=== PATIENT | female | born 1985 | race American Indian/Alaskan Native ===

== ENCOUNTER 2017-09-09 09:42 | Observation (INO) | payer OTHER ==
[~2017-09-09] VITALS: Ht 162.6 cm; Wt 54.0 kg
[~2017-09-09 09:42] MED LIST: NORCO 5-325 TA1 EACH PO
[2017-09-09] MEDS ORDERED: IBUPROFEN600 MG PO (10:09)
[2017-09-09] MEDS ORDERED: OXYCODONE HCL5 MG PO (10:10)
--- NOTE | 2017-09-09 14:28 | NUR ---
PT IN THE ROOM, ALERT AND ORIENTED X4, C/O 9/10 ABD PAIN, AND 7/10 RT SHOULDER. PT SPOUSE IS AT THE BEDSIDE. TRANEXAMIC ACID STARTED AT 1420, PT SUSIE WELL. PT GIVEN 0.5 MG DILAUDID FOR PAIN. PT DENIES NAUSEA, PAIN AND SOB.
--- NOTE | 2017-09-09 15:05 | NUR ---
PATIENT RESTING NOW THAT NAUSEA IMPROVED. ERIKA MASSEY IN ROOM ASSISTING WITH ADMIT. LAB CALLED TO COME DRAW FOR 1530 LABS
--- NOTE | 2017-09-09 15:34 | NUR ---
LAB IN ROOM. PATIENT REPORTS NAUSEA IMPROVED. PAIN OKAY AT THIS TIME.
--- NOTE | 2017-09-09 15:45 | NUR ---
DR. HIDALGO ROUNDED IN ROOM. UPDATED GIVEN TO DR. HIDALGO. PATIENT GIVEN UPDATED. PLAN FOR NEW LABS AT 1930. PATEINT UP TO BR TO VOID. VOIDED 500MLS OF CHRISTINE COLOR URINE.
--- NOTE | 2017-09-09 15:51 | NUR ---
LAB RESULTS BACK. ATTEMPTED TO CALL DR. HIDALGO IN [facility]. MESSAGE LEFT TO CALL BACK DUE TO HER BEING IN OR.
--- NOTE | 2017-09-09 16:25 | NUR ---
DILAUDID GIVEN FOR 7/10 PAIN. PATIENT TOLERATED WELL. VITALS TAKEN.
--- NOTE | 2017-09-09 16:30 | NUR ---
BROUGHT PATIENT 3 ICE PACKS.
--- NOTE | 2017-09-09 17:43 | NUR ---
patient resting in bed with hob elevated. pain okay. no nausea at this time.
--- NOTE | 2017-09-09 18:36 | NUR ---
PATIENT STATING PAIN 5/10 STARTING TO CREEP UP. DILAUDID 0.5MG GIVEN IV. NO NAUSEA AT THIS TIME. FAMILY AT BEDSIDE. NO OTHER NEEDS AT THIS TIME. VITALS DONE.
--- NOTE | 2017-09-09 19:15 | NUR ---
BEDSIDE REPORT RECEIVED FROM OFFGOING RN. PT DENIES NEEDS AT THIS TIME. PT'S SIG OTHER AT BEDSIDE. CALL LIGHT WITHIN REACH.
--- NOTE | 2017-09-09 20:15 | NUR ---
PT ASSESSMENT COMPLETE. PT DENIES NAUSEA OR SOB AT THIS TIME. PT RATES PAIN 5/10 TO ABD, DENIES PRN PAIN MEDICATION. BT'S HYPOACTIVE, ABD TENDER TO PALPATION. BANDAIDS IN PLACE X 2 TO LAP SITES, SCANT AMOUNT OF DRAINAGE PRESENT TO BANDAIDS, DRY AT THIS TIME. PT PROVIDED WITH ICE WATER AND JELLO. PT DENIES NEEDS AT THIS TIME. CALL LIGHT WITHIN REACH.
--- NOTE | 2017-09-09 22:00 | NUR ---
PT UP TO USE THE BATHROOM. PT REQUESTS PRN PAIN MEDICATION FOR ABDOMINAL PAIN, ADMINISTERED. DENIES OTHER NEEDS AT THIS TIME. CALL LIGHT WITHIN REACH. PT SIGNIFICANT OTHER IN ROOM.
--- NOTE | 2017-09-09 22:44 | NUR ---
VITALS AND I&OS DONE AND CHARTED. BEDSIDE TABLE AND CALL LIGHT WITHIN REACH. PT NEEDS NOTHING ELSE AT THIS TIME.
--- NOTE | 2017-09-10 00:20 | NUR ---
PT RESTING IN BED WITH EYES CLOSED. RESPIRATIONS EVEN AND UNLABORED. PT APPEARS TO BE SLEEPING. CALL LIGHT WITHIN REACH. PT'S SIGNIFICANT OTHER SLEEPING ON COUCH.
--- NOTE | 2017-09-10 01:22 | NUR ---
VITALS AND I&OS DONE AND CHARTED. EMPTIED GARBAGES. OFFERED HER MORE ICE WATER, SHE SAID NO THANK YOU. SHE ASKED FOR PAIN PILLS, I TOLD HER RN EDELMIRA.
--- NOTE | 2017-09-10 01:58 | NUR ---
PT ASSESSMENT COMPLETE. PT REPORTS ABD PAIN INCREASED TO 7/10. PRN DILAUDID ADMINISTERED ASSESSMENT UNCHANGED FROM PREVIOUS.PT DENIES FURTHER NEEDS AT THIS TIME. CALL LIGHT WITHIN REACH.
--- NOTE | 2017-09-10 02:30 | NUR ---
MD NOTIFIED OF CRITICAL VALUE. VERBAL ORDER RECEIVED FOR TYPE AND CROSS FOR 4 UNITS RECEIVED. CALLL TO LAB TO NOTIFY. ORDER ENETERED.
--- NOTE | 2017-09-10 02:31 | NUR ---
LAB CALLED AT 0230 CRITICAL LAB VALUES FOR HG 6.4, HCT 19.7, PRIMARY RN NOTIFIED
--- NOTE | 2017-09-10 03:00 | NUR ---
MD TO FLOOR. CONSENT SIGNED. CALL TO [employer] FOR OR TEAM TO BE CALLED IN. 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 CHLORAHEX WIPES COMPLETED AND NEW GOWN ON. PREOP CHECK LIST COMPLETE.
--- NOTE | 2017-09-10 03:57 | NUR ---
PT TO OR ON BED. COMPLETED UNIT OF BLOOD, 2ND UNIT OF BLOOD, AND BLOOD DOCUMENTATION SENT WITH SURGICAL TEAM.
--- NOTE | 2017-09-10 08:32 | NUR ---
09/10/17 0832 Reina Faith 0737 PT ARRIVED IN PACU MOANING AND C/O ABD PAIN. 0739 DILAUDID 0.5MG GIVEN IVP. ANESTHESIA AT BEDSIDE. 0747 PT CONTINUES TO CRY OUT AND C/O ABD PAIN. DILAUDID 0.5MG GIVEN IVP. 0755 REPORT GIVEN TO [facility] RN'S. 0756 DILAUDID 0.5MG GIVEN FOR C/O ABD PAIN. 0800 DILAUDID 0.5MG GIVEN IVP BEFORE TRANSFER TO [facility] FOR TRANSPORT. PT'S SPOUSE AT BEDSIDE. TRANSFERED TO [facility] WITH 4 PERSON ASSIST. LEFT WITH [facility] AND [facility] AT 0805. 2UNITS OF [facility]'S SENT WITH CREW IN [place].
--- NOTE | 2017-09-10 09:42 | HP ---
[facility] [address] [place], [place] [address] Signed ADMISSION DATE: 09/09/2017 HISTORY OF PRESENT ILLNESS: The patient is a 32-year-old female, 5, para 3, VIP 2, status post laparoscopic bilateral tubal ligation with Falope rings on September 08, which appeared completely uncomplicated at that time. She had increased pain early the morning of admission (the night of her surgical procedure. She went to the restroom to void but then subsequently passed out and she believes she hit her head. She then returned to bed, but continued to have some increased right-sided abdominal pain. She spoke to the postop nurse the following morning who called as a routine f/u. She mentioned the fainting episode and was advised to come into the emergency room for evaluation. She has had some decreased appetite and intermittent nausea and vomiting. She denied any fever. PAST HISTORY: Surgeries: Laparoscopic tubal ligation with Falope rings on September 08. That is her only surgery. Illnesses: Positive for migraines only. HABITS: Negative for tobacco. Positive for occasional alcohol use. Positive for cannabis use. ALLERGIES: No known allergies. MEDICATIONS: Percocet and Motrin since her surgery. PHYSICAL EXAMINATION: VITAL SIGNS: On her admit, her vital signs were stable. Blood pressure is 137/83, pulse 86. She was afebrile. LUNGS: Clear. HEART: Regular rate and rhythm without murmur. ABDOMEN: Tender and more firm on the right lower abdomen. The dressings are dry and intact. EXTREMITIES: Negative. CT scan revealed moderate free fluid, probably blood, and a right thickened rectus muscle with a mass approximately 9 x 4 x 10 cm, which was probably a hematoma. Electronically Signed By: ANTONIO HIDALGO MD 09/10/17 0942 PATIENT NAME: JOEL LANE HISTORY AND PHYSICAL DATE OF : [birth year] REPORT #: [id number] PHYSICIAN: ANTONIO HIDALGO MD PCP: ANDREWS WARD REPORT IS CONFIDENTIAL AND NOT TO BE RELEASED WITHOUT AUTHORIZATION [facility] [address] [place], [place] [address] Signed The upper abdomen was normal. LABS: Her hematocrit was 44 before her tubal ligation. On the morning of her ER evaluation, hematocrit was 29.5. At the time of her admission, her hematocrit was 24. Her chemistry panel was normal. IMPRESSION: A 32-year-old female with probable abdominal wall hematoma or pelvic hematoma. It is possible this is a self-limiting problem, but this will require very close observation. If her H and H continues to decrease, exploration of the abdomen will be needed to find the bleeding point. If she remains asymptomatic, and her H and H remain stable, it is possible she may not require any surgical evaluation. PLAN: Admit to observation. Remain NPO. Serial H and H. Tranexamic acid 1 gm IV given. SCDs. IV Dilaudid as needed. MD ESTHELA Shearer/ANUJ /[id number] Copies: ~ Electronically Signed By: ANTONIO HIDALGO MD 09/10/17 0942 PATIENT NAME: JOEL LANE WILTON HISTORY AND PHYSICAL DATE OF : [birth year] REPORT #: [id number] PHYSICIAN: ANTONIO HIDALGO MD PCP: ANDREWS WARD REPORT IS CONFIDENTIAL AND NOT TO BE RELEASED WITHOUT AUTHORIZATION
--- NOTE | 2017-09-10 09:52 | OR ---
[facility] [address] [place], [place] [address] Signed DATE OF OPERATION: 09/10/2017 SURGEON: Maliha Chapa MD BUILDING CONTRACTOR: Moses Lu MD PREOPERATIVE DIAGNOSIS: Intraabdominal hemorrhage. POSTOPERATIVE DIAGNOSIS: Intraabdominal hemorrhage. PROCEDURE: Exploratory laparotomy. ANESTHESIA: General ET. ESTIMATED BLOOD LOSS: 150 mL intraoperatively, approximately 1500 mL within the abdomen. DRAINS: Vicente catheter. URINE OUTPUT: 525 mL. INDICATIONS AND FINDINGS: The patient is a 32-year-old female 5, para 3, AB 2, who underwent a laparoscopic tubal ligation, which was uncomplicated on September 08. [facility] and that night had more pain and when she was up to the bathroom after urinating, she fainted. The [facility] Center nurse had contacted during the day after surgery just to see how she was doing and at that point she reported the fainting episode and she was advised to come into the emergency room. At that point, it was found that her preop hematocrit had been 44, but it was now 29. Abdominal CT revealed some abdominal fluid consistent with some blood as well as a thickened rectus consistent with a hematoma. The patient was admitted for observation and underwent serial lab draws. She had a hematocrit of 24 after being in the emergency room for approximately 4 hours. She then had two more lab draws, which were the same. At Electronically Signed By: MALIHA CHAPA MD 09/10/17 0952 PATIENT NAME: JOEL LANE OPERATIVE REPORT DATE OF : [birth year] REPORT #: [id number] PHYSICIAN: MALIHA CHAPA MD PCP: ANDREWS WARD REPORT IS CONFIDENTIAL AND NOT TO BE RELEASED WITHOUT AUTHORIZATION [facility] [address] [place], [place] [address] Signed that point, she had a level drawn 4 hours after her previous one. This level was drawn late and the results also returned quite late, but at that point, her hematocrit was found to be 19, which was a significant change from her prior labs. At that point, it was felt that exploration was necessary to find out where the bleeding was coming from and to stop it. At the time of surgery, exam under anesthesia revealed some fullness on the right side of the abdomen and pelvis, but there was no obvious mass. There was some fresh blood noted underneath the dressing at the suprapubic site, but otherwise her abdomen appeared benign. DESCRIPTION OF PROCEDURE: The patient was prepped and draped in the supine position. The incision was made in a Pfannenstiel location going through the prior suprapubic site using the knife. There was a bleeding point just below the skin at the suprapubic incision. This was controlled with cautery. The fascia was opened transversely. The inferior and superior fascial flaps were created. The abdomen was then entered through the peritoneal incision that had been made with the tubal ligation and this was extended superiorly. A large amount of blood was then extruded out of the abdomen. After the great majority of the blood was removed from the abdomen, a careful examination was made of the pelvis. The patient's right tube and ovary were seen to be normal. The Falope ring was intact and there was no evidence of tearing of the tube. The uterus had no evidence of any lacerations. The patient's left tube and ovary were also evaluated and there was no evidence of any bleeding or tearing around that Falope ring. Following this, the small Stan was placed to aid in visualization. Further inspection was done and there was some bruising noted around the sigmoid on the patient's left side and on the pelvic sidewall and this was felt to be more likely to be related to the retraction. The abdomen was copiously irrigated and inspected and both gutters were evaluated and the left side appeared to be dry with no evidence of bleeding from the upper abdomen. The right side did appear to have a continuous trickle of blood. There appeared to be some small bleeding points on the omentum as it was thoroughly inspected and these were grasped and free ties of 0 Vicryl were placed on the bleeding points identified. However, there continued to be some bleeding coming down from the right gutter despite this. It was felt that there was possibly an injury higher that could not be evaluated with the pfannensteil incision and that further expertise was needed as this was clearly not a pelvic injury. So at this point, the general surgeon, Dr. Casper was asked to come in to help with evaluation of the patient. The retractor was removed and this area was packed. The umbilical incision was also reopened and inspected. There appeared to be some raw areas on the muscles and some [id number] sutures of 0 Vicryl placed in this area. This area was inspected both from underneath as well as from above. Electronically Signed By: MALIHA CHAPA MD 09/10/17 0952 PATIENT NAME: JOEL LANE OPERATIVE REPORT DATE OF : [birth year] REPORT #: [id number] PHYSICIAN: MALIHA CHAPA MD PCP: ANDREWS WARD REPORT IS CONFIDENTIAL AND NOT TO BE RELEASED WITHOUT AUTHORIZATION [facility] [address] [facility] [place] [address] Casper arrived and evaluated this area, he felt that this was likely related to possible liver injury or something that was quite high up around the liver and that more advanced care was indicated. At this point, the decision was made to close the abdomen and transport the patient for advanced care. The packs were removed and again a small trickle of bloody fluid was seen to come from the right gutter. The peritoneum was identified and Thaddeus was placed around the bruised area around the sigmoid colon. The peritoneum was then closed with a running suture of 3-0 Vicryl. The muscles were brought together with interrupted sutures of 0 Vicryl. This layer was irrigated and inspected and appeared to be hemostatic. Thaddeus was sprinkled over the muscles also to aid in hemostasis. The fascia was closed from each angle to the midline with running suture of 0 Vicryl. The subcutaneous tissue was irrigated and bleeding points controlled with cautery. This was closed with a running suture of 3-0 Vicryl. The skin was closed with subcuticular suture of 3-0 Vicryl Rapide. This was followed by Mastisol and Steri-Strips. The fascial incision at the umbilicus was reidentified and closed with a running suture of 0 Vicryl. A deep suture of 3-0 Vicryl was placed to close a little bit at the space. The skin was closed with subcuticular sutures of 3-0 Vicryl Rapide. All sponge and needle counts were correct. The patient did tolerate the procedure well and was quite stable during the surgery. Preparations were then made for transport. Maliha Chapa MD PJW/MODL /[id number] cc: MD Dominick Tracy MD Copies: MOSES LU MD, ANDREW L MD ~ Electronically Signed By: MALIHA CHAPA MD 09/10/17 0952 PATIENT NAME: JOEL LANE OPERATIVE REPORT DATE OF : [birth year] REPORT #: [id number] PHYSICIAN: MALIHA CHAPA MD PCP: ANDREWS WARD REPORT IS CONFIDENTIAL AND NOT TO BE RELEASED WITHOUT AUTHORIZATION
--- NOTE | 2017-09-10 13:16 | OR ---
[facility] [address] [facility], [place] [address] Signed Copies: ~ Electronically Signed By: ANTONIO HIDALGO MD 09/10/17 1316 PATIENT NAME: SHERJOEL JO OPERATIVE REPORT DATE OF : [birth year] REPORT #: [id number] PHYSICIAN: ANTONIO HIDALGO MD PCP: ANDREWS WARD REPORT IS CONFIDENTIAL AND NOT TO BE RELEASED WITHOUT AUTHORIZATION
== END 2017-09-10 03:58 | disposition short-term general hospital (02) ==
LOC: ED 09:42 → MS 09:44
PROVIDERS: ADMIT Obstetrics & Gynecology
PROC: 0W3G0ZZ Control Bleeding in Peritoneal Cavity, Open Approach (ICD-10-PCS; principal; 2017-09-09)
DX: N99.820 Postprocedural hemorrhage of a genitourinary system organ or structure following a genitourinary system procedure (principal); N99.840 Postprocedural hematoma of a genitourinary system organ or structure following a genitourinary system procedure; Y83.8 Other surgical procedures as the cause of abnormal reaction of the patient, or of later complication, without mention of misadventure at the time of the procedure; D64.9 Anemia, unspecified; F17.200 Nicotine dependence, unspecified, uncomplicated; Z98.51 Tubal ligation status
CPT/HCPCS: 00840; 36415; 36430; 74177; 80053; 81001; 85025; 85027; 85384; 85610; 85730; 86850; 86900; 86901; 86920; 96361; 96374; 96375; 96376; 99285; G0378; J0131; J0690; J1170; J1885; J2405; J2550; J3010; J7030; J7120; P9016; Q9967

== ENCOUNTER → 2018-10-18 | Emergency (ER) | payer OTHER ==
[~2018-10-18] VITALS: Ht 162.6 cm; Wt 54.0 kg
[~2018-10-18] MED LIST changes: +IBUPROFEN600 MG PO; +OXYCODONE HCL5 MG PO; +ZOFRAN4 MG PO
== END ==
LOC: ED 01:16
DX: R10.9 Unspecified abdominal pain (principal); R11.2 Nausea with vomiting, unspecified
CPT/HCPCS: 74177; 80053; 81001; 83690; 84703; 85025; 99284-25; J1170; J2405; J2550; J7030; Q9967

== ENCOUNTER 2021-03-12 20:38 | Emergency (ER) | payer OTHER ==
[~2021-03-12] VITALS: Ht 162.6 cm; Wt 60.3 kg
--- OUTSIDE RECORDS SUMMARY | 2021-03-12 20:46 | XMS ---
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 Maxine has no Care Guidelines for this patient. EAissatou VISIT COUNT (12 MO.) 1 RICARDO Glass TOTAL 1 NOTE: Visits indicate total known visits. ED/UCC VISIT TRACKING (12 MO.) 03/12/2021 20:39 RICARDO Huerta OR TYPE: Emergency COMPLAINT: - CONSTIPATION, VOMITING BLOOD INPATIENT VISIT TRACKING (12 MO.) No inpatient visits to display in this time frame [email or web address]
[2021-03-12] MEDS ORDERED: ONDANSETRON ODT8 MG PO (23:24)
[2021-03-12] MEDS ORDERED: CARAFATE1 GM PO (23:24)
[2021-03-12] MEDS ORDERED: PROTONIX20 MG PO (23:24)
== END 2021-03-12 23:57 | disposition home or self-care (01) ==
LOC: ED 20:38
DX: K59.00 Constipation, unspecified (principal); F10.99 Alcohol use, unspecified with unspecified alcohol-induced disorder; K22.6 Gastro-esophageal laceration-hemorrhage syndrome; R11.2 Nausea with vomiting, unspecified; Z20.822 Contact with and (suspected) exposure to COVID-19; F17.200 Nicotine dependence, unspecified, uncomplicated; Z88.5 Allergy status to narcotic agent
CPT/HCPCS: 36415; 74177; 80053; 81001; 83690; 84703; 85025; 85610; 96375; 99284-25; A9270; C9803; G0480; J1200; J2270; J2405; J7030; U0003

== ENCOUNTER 2021-11-13 18:03 | Emergency (ER) | payer SELFPAY ==
[~2021-11-13] VITALS: Ht 162.6 cm; Wt 60.3 kg
[~2021-11-13 18:03] MED LIST changes: +CARAFATE1 GM PO; +ONDANSETRON ODT8 MG PO; +PROTONIX20 MG PO
[2021-11-13] MEDS ORDERED: ONDANSETRON ODT8 MG PO (21:38)
== END 2021-11-13 21:56 | disposition home or self-care (01) ==
LOC: ED 18:03
DX: R10.84 Generalized abdominal pain (principal); R11.2 Nausea with vomiting, unspecified; F19.10 Other psychoactive substance abuse, uncomplicated; F17.200 Nicotine dependence, unspecified, uncomplicated
CPT/HCPCS: 36415; 74177; 80053; 81001; 83690; 84703; 85025; 96361; 96375; 96376; 99284-25; A9270; G0480; J1170; J2405; J7030; Q9967

== ENCOUNTER 2022-01-06 07:51 | Inpatient (IN) | payer OTHER ==
[~2022-01-06] VITALS: Ht 162.6 cm; Wt 62.2 kg
--- NOTE | 2022-01-06 15:35 | NUR ---
Patient arrives with BRYSON Hoskins from ED on stretcher to room 108. Report received. Patient scoots self from stretcher to bed. Vitals, weight obtained. Skin assessment completed by this nurse and BRYSON Hoskins. Assessment completed.
--- NOTE | 2022-01-06 17:52 | NUR ---
Discussed patient's concern about alcohol withdrawal with Dr. Mendez. Patient informed this nurse most recent drink was 3 days ago and she has had withdrawal issues with hallucinations when she has quit drinking previously. Last drink greater than 72 hours ago, no initiation of protocol at this time. Patient notified. Verbalizes understanding.
--- NOTE | 2022-01-06 19:25 | NUR ---
RECEIVED REPORT FROM ADALI MASSEY. PT IS RESTING IN BED WATCHING TV. CALL LIGHT WITHIN REACH. IV FLUIDS RUNNING DIRECTED. NO FURTHER NEEDS AT THIS TIME.
--- NOTE | 2022-01-06 21:40 | NUR ---
IN PT ROOM FOR ALPINE PATROLLER AND ASSESSMENT. PT STATES PAIN IS 6/10, PRN MORPHINE GIVEN (SEE EMAR). PT STATES N/T IN HANDS AND ARMS. PT REPORTS NO SOB, DIZZINESS, OR NAUSEA AT THIS TIME. CONTINUOUS FLUIDS RUNNING DIRECTED INTO IV SITE WNL. LUNGS ARE CLEAR THROUGHOUT, PULSES PRESENT THROUGHOUT, SKIN IS PINK/DRY/WARM, NO SIGNS OF SKIN BREAKDOWN, PT IS ABLE TO MOVE SELF IN BED. ABDOMEN IS NORMAL PER PT BUT TENDER IN EPIGASTRIC REGION. BOWEL TONES ACTIVE X4. PT INDEPENDENT IN ROOM. PT IS ALERT AND ORIENTED X4. CALL LIGHT WITHIN REACH, NO FURTHER NEEDS AT THIS TIME.
--- NOTE | 2022-01-06 23:30 | NUR ---
IN PT ROOM TO CHECK ON PAIN. PT STATES PAIN 1/10 AND TOLERABLE AT THIS TIME. PT STATES 4/10 PAIN IS MANEAGABLE W/OUT PAIN MEDICATION. PT IS RESTING IN BED WITH ICE PACK GIVEN FOR COMFORT. CALL LIGHT WITHIN REACH, NO FURTHER NEEDS AT THIS TIME.
--- NOTE | 2022-01-07 01:00 | NUR ---
IN PT ROOM TO CHECK ON PAIN. PT STATES PAIN IS 5/10 IN EPIGASTRIC REGION. PRN OXY GIVEN (SEE EMAR). SMALL SIP OF WATER GIVEN FOR DIRECTOR OF HEMOPHILIA (OK'ED PER NURSE NOTIFY).
--- NOTE | 2022-01-07 02:09 | NUR ---
IN PT ROOM FOR VS. PT IS RESTING COMFORTABLY AND STATES PAIN IS MANEAGABLE WITH NO PRN MEDS NECESSARY AT THIS TIME. NO NAUSEA PER PT. VSS. CALL LIGHT WITHIN REACH, NO FURTHER NEEDS AT THIS TIME.
--- NOTE | 2022-01-07 03:37 | NUR ---
IN PT ROOM FOR CHANGING OF CONTINUOUS FLUIDS. IV FLUIDS RUNNING DIRECTED. PT APPEARS COMFORTABLE AND IS RESTING WITH EYES CLOSED, AWAKENS EASILY TO VOICE. IV SITE WNL. CALL LIGHT WITHIN REACH, NO FURTHER NEEDS AT THIS TIME.
--- NOTE | 2022-01-07 05:05 | NUR ---
PT RESTING W/EYES CLOSED ON BACK. PT APPEARS COMFORTABLE. RESPIRATIONS ARE EVEN AND NO SIGNS OF DISTRESS. CALL LIGHT WITHIN REACH. CONTINUOUS FLUIDS RUNNING DIRECTED.
--- NOTE | 2022-01-07 05:35 | NUR ---
IN PT ROOM FOR RECORDING I/O. PT AMBULATED TO BATHROOM W/OUT DIFFICULTY INDEPENDENTLY W/IV PUMP. PT REPORTED NAUSEA AND 6/10 INCREASING PAIN, PRN ZOFRAN AND OXY GIVEN (SEE EMAR). ICE PACK PROVIDED FOR PT COMFORT. CALL LIGHT WITHIN REACH, NO FURTHER NEEDS AT THIS TIME.
--- NOTE | 2022-01-07 07:00 | NUR ---
PT REPORTS NAUSEA. PAIN IS MANEAGABLE AT THIS TIME AT 5/10 AND NO MEDS REQUIRED PER PT. PRN NAUSEA MED GIVEN (SEE EMAR).
--- NOTE | 2022-01-07 07:00 | NUR ---
Report from Micah Garcia RN. Patient alert and oriented in bed. Denies needs at this time. Call light in reach, bed rails up X2.
--- NOTE | 2022-01-07 09:23 | NUR ---
AM MEDICATIONS ADMINISTERED. PAIN TOLERABLE AT THIS TIME. ASSESSMENT COMPLETED. DENIES NEEDS AT THIS TIME. CALL LIGHT IN REACH. BED RAILS UP X2.
--- NOTE | 2022-01-07 09:30 | NUR ---
PT IN BED. VITALS AND IS AND OS COMPLETE. PT DECLINED NEEDING TO USE RESTROOM. HAT CHECKED AND OK. NO FURTHER NEEDS. CALL LIGHT WITHIN REACH.
--- NOTE | 2022-01-07 10:45 | NUR ---
[place]oke with [place] She does not need any DME. Janet from [facility] was able to assist her to sign up for the OHP today. Pt would like to speak with SEKOU about her alcohol use. I called and was able to speak with Lian and she will see pt in approximately 2 hrs. Pt plans on dc to home. She does state she would be willing to go to a rehab if available.
--- NOTE | 2022-01-07 13:15 | NUR ---
PT IN BED RESTING. VITALS AND IS AND OS COMPLETE. NO FURTHER NEEDS. CALL LIGHT WITHIN REACH.
--- NOTE | 2022-01-07 13:16 | NUR ---
PT ALERT, ORIENTED AND RESTING IN BED WITH TV ON AND RM DARKENED. PT IS PLEASANT, ENGAGED IN VISIT. REQUESTED VISIT WITH -I WILL INFORM HIM. GAVE G.POST AND BLESSING. WILL FOLLOW
--- NOTE | 2022-01-07 15:06 | NUR ---
Patient awake in room, SEKOU in to speak with her.
--- NOTE | 2022-01-07 16:48 | NUR ---
Patient lying in bed today, up independently. Allowed sips of water per Dr. Mendez's verbal order. Patient increased nausea this afternoon after sips of water. See EMAR for PRN's given for nausea and pain today. Continues on IV fluids. Labs improving.
--- NOTE | 2022-01-07 19:10 | NUR ---
RECEIVED REPORT FROM ADALI MASSEY. PT IS RESTING IN BED. REPORTS PAIN 7/10 IN EPIGASTRIC REGION AND NAUSEA AT THIS TIME. PRN MORPHINE AND PRN ZOFRAN GIVEN (SEE EMAR). CALL LIGHT WITHIN REACH, NO FURTHER NEEDS AT THIS TIME.
--- NOTE | 2022-01-07 19:23 | EKG ---
[facility] [address] [facility] [place] [address] Signed Normal sinus rhythm Normal ECG No previous ECGs available Confirmed by DESIRAE PORTILLO MD ([id number]) on 01/07/2022 7:23:41 PM Electronically Signed By: DESIRAE PORTILLO MD 01/07/221922 PATIENT NAME: JOEL LANE WILTON Electrocardiogram DATE OF : [birth year] PHYSICIAN: DESIRAE PORTILLO MD REPORT #: [id number] REPORT IS CONFIDENTIAL AND NOT TO BE RELEASED WITHOUT AUTHORIZATION
--- NOTE | 2022-01-07 19:40 | NUR ---
IN PT ROOM FOR ASSESSMENT, PAIN FOLLOW UP, AND VS. PT RESTING IN BED, AT BEDSIDE. LUNGS CLEAR THROUGHOUT, PULSES PRESENT THROUGHOUT, SKIN C/D/I AND NO SIGNS OF SKIN BREAKDOWN, PT ABLE TO MOVE SELF IN BED. PAIN HAS RESOLVED TO 4/10 POST PRN MORPHINE. PT STATES NAUSEA HAS RESOLVED POST PRN ZOFRAN. PT STATES N/T IN ONLY LEFT HAND AND ARM AT THIS TIME. ABDOMEN NORMAL SIZE PER PT AND TENDER IN EPIGASTRIC REGION, BOWEL TONES ACTIVE X4. CONTINUOUS FLUIDS RUNNING DIRECTED, NEW DRESSING PLACED ON IV SITE, SITE WNL. PROVIDED LEMON/CABAZON SODA FOR . CALL LIGHT WITHIN REACH, NO FURTHER NEEDS AT THIS TIME.
--- NOTE | 2022-01-07 22:44 | NUR ---
PT RESTING W/EYES CLOSED. RESPIRATIONS EVEN AND UNLABORED, NO SIGNS OF DISTRESS. CALL LIGHT WITHIN REACH. SLEEPING IN RECLINER AT BEDSIDE.
--- NOTE | 2022-01-07 23:35 | NUR ---
PT RESTING IN BED LAYING ON BACK W/EYES CLOSED. SLEEPING IN RECLINER AT BEDSIDE. CALL LIGHT WITHIN REACH. IV FLUIDS RUNNING DIRECTED.
--- NOTE | 2022-01-08 00:37 | NUR ---
PT RESTING ON BACK W/EYES CLOSED. RESPIRATIONS ARE EVEN AND UNLABORED, NO SIGNS OF DISTRESS. PT APPEARS COMFORTABLE. CALL LIGHT WITHIN REACH.
--- NOTE | 2022-01-08 01:28 | NUR ---
PT RESTING W/EYES CLOSED. PT APPEARS COMFORTABLE. RESPIRATIONS ARE EVEN AND UNLABORED, NO SIGNS OF DISTRESS. CALL LIGHT WITHIN REACH. IV FLUIDS RUNNING DIRECTED.
--- NOTE | 2022-01-08 02:39 | NUR ---
IN ROOM D/T BEEPING PUMP. PT NEEDING TO USE RESTROOM. PT INDEPENDENT TO RESTROOM. STATES PAIN IS 6/10 IN EPIGASTRIC REGION AT THIS TIME, PRN OXY GIVEN (SEE EMAR). PT REPORTS NO NAUSEA AT THIS TIME. NO ACUTE CHANGES FROM PREVIOUS ASSESSMENT. PT REMAINS TENDER IN EPIGASTRIC REGION AND REPORTS TIGHTNESS THAT INCREASES W/AMBULATION. BOWEL TONES ACTIVE X4. PT NOW RESTING BACK IN BED, ICE CHIPS AND ICE PACK PROVIDED, SLEEPING ON COUCH, CALL LIGHT WITHIN REACH, NO FURTHER NEEDS AT THIS TIME.
--- NOTE | 2022-01-08 03:35 | NUR ---
PT RESTING ON BACK W/EYES CLOSED. RESPIRATIONS ARE EVEN AND UNLABORED, NO SIGNS OF DISTRESS. CALL LIGHT WITHIN REACH, IV FLUIDS RUNNING DIRECTED. PT APPEARS COMFORTABLE.
--- NOTE | 2022-01-08 05:20 | NUR ---
PT IN BED. VITALS AND IS AND OS COMPLETE. PT DECLINED TO USE RESTROOM PT PERFORMED SELF AM CARE. NO FURTHER NEEDS. CALL LIGHT WITHIN REACH.
--- NOTE | 2022-01-08 05:20 | NUR ---
UNEVENTFUL NIGHT FOR PT. PT SLEPT THROUGH MOST THE NIGHT. SLEPT ON COUCH MOST OF THE NIGHT. ABDOMINAL PAIN NEVER EXCEEDED 7/10, PRN OXY GIVEN X2, PRN MORPHINE GIVEN X1, AND PRN ZOFRAN GIVEN X1. PT INDEPENDENT THROUGHOUT THE ROOM AND ALERT AND ORIENTED X4. NO SIGNS OF SKIN BREAKDOWN, PT ABLE TO MOVE SELF IN BED. PT MET W/SEKOU YESTERDAY AND WILLING TO WORK WITH THEM FOR ALCOHOL ABUSE. NO SIGNIFICANT ASSESSMENT FINDINGS BESIDES PAIN AND TENDERNESS IN ABDOMEN, AND N/T IN LEFT HAND/ARM PRESENT SINCE ADMISSION. PT USES CALL LIGHT APPROPRIATELY. ICE PACK FOR COMFORT, SIPS ALLOWED, ICE CHIPS AT BEDSIDE.
--- NOTE | 2022-01-08 07:36 | NUR ---
Patient resting in bed, no distress. Personal supplies and call light within reach.
--- NOTE | 2022-01-08 09:35 | NUR ---
DR. HALLMAN OFFICE WILL BE CONTACTING THE PT TO SCHEDULE A FOLLOW-UP IN THEIR OFFICE
--- NOTE | 2022-01-08 09:47 | NUR ---
PATIENT RESTING IN BED WITH EYES CLOSED. UPON WALKING INTO ROOM PATIENT WOKE UP. VITALS TAKEN AND RECORDED. PATIENT COMPLAINS OF EPIGASTRIC PAIN 5/10. MORPHINE PROVIDED PER ORDER, DOCUMENTED IN EMAR. PATIENT COMPLAINS OF NAUSEA. GIVEN PROCHLORPERAZINE. PATIENT NPO, BUT ABLE TO CHEW ON ICE CHIPS WHICH WERE PROVIDED FOR HER. CALL LIGHT WITHIN REACH, NO OTHER COMPLAINTS AT THIS TIME.
--- NOTE | 2022-01-08 09:49 | NUR ---
MORNING ASSESSMENT AND MEDICATIONS PASS DONE AT THIS TIME. PATIENT REORTS NAUSEA ND ABDOMINAL PAIN; MORPHINE 4MG IV AND COMPAZINE 10MG IV ADMIN AT THIS TIME. PATIENT HAS FRESH ICE CHIPS AT BEDSIDE. NO FURTHER NEEDS AT THIS TIME, PERSONAL SUPPLIES AND CALL LIGHT WITHIN REACH.
--- NOTE | 2022-01-08 11:43 | NUR ---
Admin oxycodone 5mg po for reports of 6/10 abdominal pain.
--- NOTE | 2022-01-08 12:25 | NUR ---
PT LAYING IN BED, ICE BAG ON FOREHEAD. PT COMPLAINS OF HEADACHE. SHE WOULD LIKE TO VISIT THE MECHANICAL STRIPER TODAY-WILL MAKE IT HAPPEN. GAVE ENCOURAGEMENT
--- NOTE | 2022-01-08 15:32 | NUR ---
Admin oxycodone 5mg po for reports of 5/10 abdominal pain. temp 98.9 po. Patient denies nasuea. No needs, personal supplies and call light within reach.
--- NOTE | 2022-01-08 20:55 | NUR ---
PT IN GOOD SPIRITS, VISITING WITH FAMILY, PO PAIN MEDS AND ZOFRAN GIVEN FOR NAUSEA - VITALS AND I/O COMPLETE WNL. IV FUSING AT 125, ASSESSMENT COMPLETE.
--- NOTE | 2022-01-09 01:19 | NUR ---
PT RESTING IN BED, CALL LIGHT IN REACH - EYES CLOSED, RESP EVEN.
--- NOTE | 2022-01-09 03:10 | NUR ---
PT AMB TO BR TO VOID, REPORTS ABD AND NAUSEA - MEDICATED, FAMILY IN ROOM ASLEEP - WM BLKT GIVEN TO DTG. PT HAS CALL LIGHT AND LIKES COOL ROOM TEMP. DENIES OTHER NEEDS- NPO AND REST CONTINUES.
--- NOTE | 2022-01-09 06:51 | NUR ---
SCHEDULED MEDS PROVIDED. VS AND I&O COMPLETED. NO OTHER NEEDS. CALL LIGHT IN REACH.
--- NOTE | 2022-01-09 07:00 | NUR ---
PATIENT IN BED THIS MORNING PER REQUEST. ICE CHIPS GIVEN. PT HAD COMPLAINTS OF PAIN, NURSE ADALI NOTIFIED. PT HAS NO OTHER NEEDS AT THIS TIME. CALL LIGHT WITHIN REACH.
--- NOTE | 2022-01-09 07:24 | NUR ---
Report from Mariano Coleman RN. Patient alert in bed. Denies needs at this time. Call light in reach. Bed rails up X2.
--- NOTE | 2022-01-09 08:00 | NUR ---
REQUESTS ANALGESIC FOR PAIN. SEE EMAR. ASSESSMENT COMPLETED. PATIENT STATES SHE CAN FEEL BOWELS ARE MORE ACTIVE THIS AM. DENIES OTHER NEEDS AT THIS TIME. CALL LIGHT IN REACH, BED RAILS UP X2.
--- NOTE | 2022-01-09 09:46 | NUR ---
PATIENT IN BED AFTER MEAL. VITALS AND I/O'S COMPLETED. PT HAS NO OTHER NEEDS AT THIS TIME. CALL LIGHT WITHIN REACH.
--- NOTE | 2022-01-09 13:47 | NUR ---
PATIENT IN BED AFTER MEAL. VITALS AND I/O'S COMPLETED. PT HAS NO OTHER NEEDS AT THIS TIME. CALL LIGHT WITHIN REACH.
--- NOTE | 2022-01-09 16:49 | NUR ---
Patient alert and oriented. Independent. Continues on IV fluids, rate decreased today. PRN analgesic given orally X2 today. No antiemetics administered. Continues to tolerate liquid diet, increased to full liquid today. Potassium and magnesium supplemented today. Small bowel movement this afternoon.
--- NOTE | 2022-01-09 21:43 | NUR ---
Vitals and I/O have been documented. PT is laying in bed, call light is within reach, PT has no other needs at this time.
--- NOTE | 2022-01-09 22:18 | NUR ---
PT APPEARS TO BE SLEEPING AT THIS TIME, TV ON, BUT ROOM IS DARK AND PT IS LYING FLAT IN BED. DENIES ANY C/O'S AT THIS TIME.
--- NOTE | 2022-01-10 00:45 | NUR ---
REPORT FROM VALERIE RN, PT EYES CLOSED, RESP EVEN, IV LR @85, CALL LIGHT IN REACH.
--- NOTE | 2022-01-10 03:00 | NUR ---
PT RESTING, EYES CLOSED, CALL LIGHT IN REACH.
--- NOTE | 2022-01-10 04:46 | NUR ---
pt vitals and i/o complete - assessment done, rn congratulated pt on 4 days of sobriety, and encouraged pt to continue to work on her goals. pt smiles and is thankful. We had some theraputic talk about influences and alternatives to addictions. Again pt was praised for taking the first steps and was happy to have our talk and praise. PO pain meds were given for abd. pain. call light in reach.
--- NOTE | 2022-01-10 07:22 | NUR ---
Report from Mariano Coleman RN. Patient resting in bed with eyes closed, respirations even and unlabored. Call light in reach, bed rails up X2. Allowed to rest.
--- NOTE | 2022-01-10 09:14 | NUR ---
ALERT AND ORIENTED. SHOWERED THIS AM. ASSESSMENT COMPLETED. PRN ANALGESIC GIVEN PRESCRIBED. DENIES OTHER NEEDS AT THIS TIME. CALL LIGHT IN REACH.
[2022-01-10] MEDS ORDERED: OXYCODONE HCL5 MG PO (11:24)
[2022-01-10] MEDS ORDERED: OMEPRAZOLE20 MG PO (11:25)
[2022-01-10] MEDS ORDERED: SUCRALFATE1 GM PO (11:25)
[2022-01-10] MEDS ORDERED: ONDANSETRON ODT4 MG SL (11:26)
== END 2022-01-10 13:00 | disposition home or self-care (01) | DRG 440 ==
LOC: ED 07:51 → MS 12:52
PROVIDERS: ADMIT Internal Medicine; ATTEND Internal Medicine
DX: K85.20 Alcohol induced acute pancreatitis without necrosis or infection (principal); K70.10 Alcoholic hepatitis without ascites; E87.6 Hypokalemia; K29.20 Alcoholic gastritis without bleeding; E83.42 Hypomagnesemia; F10.20 Alcohol dependence, uncomplicated; Z88.5 Allergy status to narcotic agent; Z98.51 Tubal ligation status; Z79.899 Other long term (current) drug therapy; Z20.822 Contact with and (suspected) exposure to COVID-19
CPT/HCPCS: 36415; 71275; 74175; 76705; 80048; 80053; 80076; 83690; 83735; 84484; 85025; 85610; 87502; 93005; 93010; 99285-25; A9270; C9113; C9803; J0780; J1170; J1650; J2270; J2405; J2550; J3475; J3480; J7030; J7120; J7121; Q9967; U0003

== ENCOUNTER 2023-06-27 03:44 | Inpatient (IN) | payer OTHER ==
[2023-06-27] VITALS (21 sets, daily range): BP systolic 125–154; BP diastolic 90–114
[~2023-06-27] VITALS: Ht 162.6 cm; Wt 56.3 kg
[~2023-06-27 03:44] MED LIST changes: +CONSTULOSE10 GM/15 M PO; +HYDROXYZINE HCL25 MG PO; +KLOR-CON 1010 MEQ PO; +OMEPRAZOLE20 MG PO; +ONDANSETRON ODT4 MG SL; +SUCRALFATE1 GM PO; +VISTARIL25 MG PO
[2023-06-27] MEDS ORDERED: ASPIRIN 81 MG CHEW PO ONE (04:00)
[2023-06-27] MEDS ORDERED: fentaNYL citrate 100 MCG/2 ML VIAL IV PRN (04:00)
[2023-06-27] MEDS ORDERED: FAMOTIDINE 20 MG/ 2 ML VIAL IV ONE (04:00)
[2023-06-27] MEDS ORDERED: NITROGLYCERIN 0.4 MG SUBL SL PRN (04:00)
[2023-06-27] MEDS ORDERED: LACTATED RINGER'S 1,000 ML IV ONE (04:00)
[2023-06-27 04:09] LABS: BASOPHILS 0.6 % (0-2); EOSINOPHILS 0.4 % (0-6); HEMATOCRIT 42.7 % (35.0-50.0); LYMPHOCYTES 6.7 % (24-44); MCH 29.8 (27-36); MCHC 32.8 g/dl (30-36); MCV 90.7 fl (81-99); MONOCYTES 4.1 % (0-12); NEUTROPHILS 88.2 % (39-80); PLATELET COUNT 308 K/uL (140-440); RBC 4.71 M/ul (4.3-5.7); RDW 21.9 (10.5-15.0)
[2023-06-27 04:46] LABS: ALBUMIN 3.6 g/dL (3.4-5.0); ALBUMIN/GLOBULIN RATIO 0.97 (1.1-2.4); ANION GAP 14.6 (7-21); BILIRUBIN, TOTAL 0.9 ng/dL (0.2-1.0); CALCIUM 8.8 mg/dL (8.5-10.1); CREATININE, SERUM 0.8 mg/dL (0.55-1.02); MAGNESIUM 1.5 mg/dL (1.8-2.4); POTASSIUM 3.6 mmol/L (3.5-5.1); PROTEIN, TOTAL 7.3 g/dL (6.4-8.2)
[2023-06-27] MEDS ORDERED: THIAMINE HCL 100 MG,FOLIC ACID 1 MG,MULTIVITAMINS 10 ML in SODIUM CHLORIDE 0.9% 1,000 ML IV ONE (05:15)
[2023-06-27] MEDS ORDERED: TUBERCULIN PPD 5 UNITS/0.1 ML VIAL SUB-Q SCH (05:15)
[2023-06-27] MEDS ORDERED: LORazepam 2 MG/ML VIAL IV/IM PRN (05:15)
[2023-06-27] MEDS ORDERED: ondansetron HCL 4 MG/2 ML VIAL IV PRN ×2 (05:15→06:45)
[2023-06-27] MEDS ORDERED: LACTATED RINGER'S 1,000 ML IV SCH ×2 (05:15→05:30)
[2023-06-27] MEDS ORDERED: FOLIC ACID 1 MG/0.2 ML ML ONE (05:29)
[2023-06-27] MEDS ORDERED: MAGNESIUM SULFATE 2 GM/50 ML BAG IV ONE (05:30)
[2023-06-27] MEDS ORDERED: MORPHINE SULFATE 4 MG/ML VIAL IV PRN (06:45)
[2023-06-27] MEDS ORDERED: CLONIDINE HCL0.1 MG PO (11:06)
[2023-06-27] MEDS ORDERED: ONDANSETRON ODT4 MG PO (11:32)
[2023-06-27] MEDS ORDERED: TRAZODONE HCL50 MG PO (11:33)
[2023-06-27] MEDS ORDERED: VISTARIL25 MG PO (11:34)
[2023-06-27] MEDS ORDERED: IBUPROFEN 600 MG TAB PO PRN (14:00)
[2023-06-27 17:28] LABS: BILIRUBIN, URINE NEGATIVE (negative); BLOOD/HGB, URINE NEGATIVE (Negative); KETONE, URINE NEGATIVE (Negative); LEUK ESTERASE, URINE NEGATIVE (negative); NITRITE, URINE NEGATIVE (negative)
[2023-06-27 17:42] LABS: AMPHETAMINES, URINE POSITIVE (NEGATIVE); BARBITURATES, URINE NEGATIVE (NEGATIVE); BENZODIAZEPINE, URINE NEGATIVE (NEGATIVE); BUPRENORPHINE, URINE NEGATIVE (NEGATIVE); CANNABINOID, URINE POSITIVE (NEGATIVE); COCAINE, URINE NEGATIVE (NEGATIVE); ECSTASY, URINE NEGATIVE (NEGATIVE); FENTANYL, URINE POSITIVE (NEGATIVE); METHADONE, URINE NEGATIVE (NEGATIVE); OPIATES, URINE POSITIVE (NEGATIVE); OXYCODONE, URINE NEGATIVE (NEGATIVE); PHENCYCLIDINE, URINE NEGATIVE (NEGATIVE)
[2023-06-27] MEDS ORDERED: HALOPERIDOL LACTATE 5 MG/ML VIAL ONE (18:29)
[2023-06-27] MEDS ORDERED: hydrALAZINE HCL 20 MG/ML VIAL ONE (18:34)
[2023-06-27] MEDS ORDERED: HALOPERIDOL LACTATE 5 MG/ML VIAL IV ONE (18:45)
[2023-06-27] MEDS ORDERED: hydrALAZINE HCL 20 MG/ML VIAL IV ONE (18:45)
[2023-06-28] VITALS (21 sets, daily range): BP systolic 126–181; BP diastolic 56–121
--- NOTE | 2023-06-28 00:55 | EKG ---
[facility] [address] [place], [place] [address] Signed Sinus tachycardia Otherwise normal ECG No previous ECGs available Confirmed by JANAE BUCKNER MD ([id number]) on 06/28/2023 12:55:47 AM Electronically Signed By: JANAE BUCKNER 06/28/23 0055 PATIENT NAME: NAYANA JOHNSONJOEL Electrocardiogram DATE OF : [birth year] PHYSICIAN: JANAE BUCKNER REPORT #: [id number] REPORT IS CONFIDENTIAL AND NOT TO BE RELEASED WITHOUT AUTHORIZATION
[2023-06-28 05:44] LABS: BASOPHILS 0.3 % (0-2); EOSINOPHILS 1.7 % (0-6); HEMATOCRIT 33.7 % (35.0-50.0); HEMOGLOBIN 11.1 g/dL (12.0-18.0); LYMPHOCYTES 19.1 % (24-44); MCH 30.2 (27-36); MCHC 32.8 g/dl (30-36); MONOCYTES 4.3 % (0-12); NEUTROPHILS 74.6 % (39-80); PLATELET COUNT 160 K/uL (140-440); RBC 3.67 M/ul (4.3-5.7); RDW 21.4 (10.5-15.0)
[2023-06-28 06:01] LABS: ALBUMIN 2.5 g/dL (3.4-5.0); ALBUMIN/GLOBULIN RATIO 0.86 (1.1-2.4); ANION GAP 12.1 (7-21); BILIRUBIN, TOTAL 0.9 ng/dL (0.2-1.0); BUN/CREATININE RATIO 9.09 (6.0-28.6); CALCIUM 8.2 mg/dL (8.5-10.1); CREATININE, SERUM 0.55 mg/dL (0.55-1.02); MAGNESIUM 1.7 mg/dL (1.8-2.4); PHOSPHORUS, INORGANIC 3.4 mg/dL (2.5-4.9); POTASSIUM 3.1 mmol/L (3.5-5.1); PROTEIN, TOTAL 5.4 g/dL (6.4-8.2)
[2023-06-28] MEDS ORDERED: MAGNESIUM SULFATE 2 GM/50 ML BAG IV ONE (07:30)
[2023-06-28] MEDS ORDERED: POTASSIUM CHLORIDE 20 MEQ,LIDOCAINE HCL 1% 20 MG in DEXTROSE 5% 250 ML IV ONE (07:30)
[2023-06-28] MEDS ORDERED: ENOXAPARIN SODIUM 40 MG/0.4 ML SYR SUB-Q SCH (09:00)
[2023-06-28] MEDS ORDERED: MULTIVITAMINS 10 ML,FOLIC ACID 1 MG,THIAMINE HCL 100 MG in SODIUM CHLORIDE 0.9% 1,000 ML IV SCH (09:00)
[2023-06-28] MEDS ORDERED: CHLORDIAZEPOXIDE 25 MG CAP PO SCH (09:11)
[2023-06-28] MEDS ORDERED: hydrALAZINE HCL 20 MG/ML VIAL IV PRN (12:15)
[2023-06-28] MEDS ORDERED: AMLODIPINE BESYLATE 5 MG TAB PO SCH (12:15)
[2023-06-28] MEDS ORDERED: hydrALAZINE HCL 20 MG/ML VIAL IV ONE (14:00)
[2023-06-29] VITALS (15 sets, daily range): BP systolic 16–138; BP diastolic 51–99
[2023-06-29 05:21] LABS: BASOPHILS 0.1 % (0-2); EOSINOPHILS 0.5 % (0-6); HEMATOCRIT 36.2 % (35.0-50.0); HEMOGLOBIN 12.1 g/dL (12.0-18.0); LYMPHOCYTES 6.4 % (24-44); MCH 30.4 (27-36); MCHC 33.3 g/dl (30-36); MCV 91.2 fl (81-99); PLATELET COUNT 147 K/uL (140-440); RBC 3.97 M/ul (4.3-5.7); RDW 21.6 (10.5-15.0)
[2023-06-29 05:36] LABS: BUN/CREATININE RATIO 6.52 (6.0-28.6); CALCIUM 7.7 mg/dL (8.5-10.1); CREATININE, SERUM 0.46 mg/dL (0.55-1.02); MAGNESIUM 1.3 mg/dL (1.8-2.4); PHOSPHORUS, INORGANIC 3.9 mg/dL (2.5-4.9)
[2023-06-29] MEDS ORDERED: MAGNESIUM SULFATE 2 GM/50 ML BAG IV ONE (07:00)
[2023-06-29] MEDS ORDERED: Calcium Gluconate in NS 1,000 MG/50 ML BAG IV ONE (07:00)
[2023-06-29] MEDS ORDERED: POTASSIUM CHLORIDE 10 MEQ TABCR PO ONE (09:00)
[2023-06-29] MEDS ORDERED: CHLORDIAZEPOXIDE 25 MG CAP PO SCH (09:00)
[2023-06-29] MEDS ORDERED: AMLODIPINE BESYLATE 10 MG TAB PO SCH (09:00)
[2023-06-29 16:38] LABS: ALBUMIN 2.1 g/dL (3.4-5.0); ALBUMIN/GLOBULIN RATIO 0.64 (1.1-2.4); ANION GAP 11.4 (7-21); BILIRUBIN, TOTAL 0.8 ng/dL (0.2-1.0); BUN/CREATININE RATIO 4.16 (6.0-28.6); CALCIUM 7.6 mg/dL (8.5-10.1); CREATININE, SERUM 0.72 mg/dL (0.55-1.02); POTASSIUM 3.4 mmol/L (3.5-5.1); PROTEIN, TOTAL 5.4 g/dL (6.4-8.2)
[2023-06-29] MEDS ORDERED: POLYETHYLENE GLYCOL 3350 1 PACKET PO ONE (17:15)
[2023-06-29] MEDS ORDERED: hydrOXYzine pamoate 25 MG CAP PO SCH (17:15)
[2023-06-29] MEDS ORDERED: cloNIDine HCL 0.1 MG TAB PO SCH (21:00)
[2023-06-29] MEDS ORDERED: LORazepam 0.5 MG TAB PO PRN (21:00)
[2023-06-29] MEDS ORDERED: ACETAMINOPHEN 500 MG TAB PO PRN (21:00)
[2023-06-30] VITALS (7 sets, daily range): BP systolic 111–127; BP diastolic 66–87
[2023-06-30 05:50] LABS: ANION GAP 12.4 (7-21); BUN/CREATININE RATIO 5.35 (6.0-28.6); CALCIUM 7.6 mg/dL (8.5-10.1); CREATININE, SERUM 0.56 mg/dL (0.55-1.02); POTASSIUM 3.4 mmol/L (3.5-5.1)
[2023-06-30] MEDS ORDERED: THIAMINE HCL 100 MG TAB PO SCH (08:00)
[2023-06-30] MEDS ORDERED: MULTIVITAMINS THERAPEUTIC 1 EA TAB PO SCH (08:00)
[2023-06-30] MEDS ORDERED: FOLIC ACID 1 MG TAB PO SCH (08:00)
[2023-06-30] MEDS ORDERED: SENNOSIDES/DOCUSATE 1 EA TAB PO SCH (09:00)
[2023-06-30] MEDS ORDERED: POTASSIUM CHLORIDE 10 MEQ TABCR PO ONE (09:00)
[2023-06-30 09:08] LABS: BASOPHILS 0.2 % (0-2); EOSINOPHILS 1.1 % (0-6); HEMATOCRIT 33.3 % (35.0-50.0); HEMOGLOBIN 11.2 g/dL (12.0-18.0); MCH 30.7 (27-36); MCHC 33.6 g/dl (30-36); MCV 91.2 fl (81-99); MONOCYTES 7.7 % (0-12); PLATELET COUNT 164 K/uL (140-440); RBC 3.65 M/ul (4.3-5.7); RDW 22.3 (10.5-15.0)
[2023-06-30] MEDS ORDERED: SENNOSIDES/DOCUSATE 1 EA TAB PO PRN (10:16)
[2023-06-30] MEDS ORDERED: TRAZODONE HCL50 MG PO (13:25)
[2023-06-30] MEDS ORDERED: AMLODIPINE BESY10 MG PO (13:25)
[2023-06-30] MEDS ORDERED: CLONIDINE HCL0.1 MG PO (13:25)
[2023-06-30] MEDS ORDERED: VISTARIL25 MG PO (13:26)
[2023-06-30] MEDS ORDERED: VITAMIN B-1100 MG PO (13:27)
[2023-06-30] MEDS ORDERED: ONDANSETRON ODT4 MG PO (13:27)
[2023-06-30] MEDS ORDERED: THERA TABLET400 MCG PO (13:27)
[2023-06-30] MEDS ORDERED: FOLIC ACID1 MG PO (13:27)
[2023-06-30 16:46] LABS: BILIRUBIN, URINE NEGATIVE (negative); BLOOD/HGB, URINE NEGATIVE (Negative); KETONE, URINE TRACE (Negative); LEUK ESTERASE, URINE TRACE (negative); NITRITE, URINE NEGATIVE (negative); PH, URINE 7.5 (5-7)
[2023-06-30 16:55] LABS: BACTERIA, URINE RARE /hpf (negative); CASTS, URINE NONE SEEN \\lpf; CRYSTALS, URINE NONE SEEN (0-1+); EPITHELIAL CELLS, URINE SQUAMOUS 4+ /lpf (0-1+); RED BLOOD CELLS, URINE 0-1 /hpf (0-5); REFLEX CULTURE, URINE No (No); WHITE BLOOD CELLS, URINE 0-1 /HPF (0-5)
[2023-06-30 16:56] LABS: COLLECTION TYPE, URINE CLEAN CATCH
[2023-06-30] MEDS ORDERED: TRAZODONE HCL 50 MG TAB PO SCH (21:00)
[2023-07-01 05:29] VITALS: BP 115/74
[2023-07-01 05:41] LABS: BASOPHILS 0.3 % (0-2); EOSINOPHILS 1.9 % (0-6); HEMATOCRIT 31.6 % (35.0-50.0); HEMOGLOBIN 10.3 g/dL (12.0-18.0); LYMPHOCYTES 8.4 % (24-44); MCH 30.6 (27-36); MCHC 32.5 g/dl (30-36); MCV 94.3 fl (81-99); MONOCYTES 7.8 % (0-12); NEUTROPHILS 81.6 % (39-80); PLATELET COUNT 197 K/uL (140-440); RBC 3.35 M/ul (4.3-5.7)
[2023-07-01 05:54] LABS: ANION GAP 4.3 (7-21); BUN/CREATININE RATIO 7.54 (6.0-28.6); CALCIUM 7.5 mg/dL (8.5-10.1); CREATININE, SERUM 0.53 mg/dL (0.55-1.02); POTASSIUM 3.3 mmol/L (3.5-5.1)
[2023-07-01 09:04] VITALS: BP 125/84
[2023-07-01 11:37] VITALS: BP 125/84
== END 2023-07-01 10:15 | disposition home or self-care (01) | DRG 896 ==
LOC: ED 03:44 → CCU 05:23 → MS 05:23 → CCU 10:54 → MS 06-29 18:12
PROVIDERS: Family Medicine; Internal Medicine; ADMIT Internal Medicine; ATTEND Internal Medicine
PROC: HZ2ZZZZ Detoxification Services for Substance Abuse Treatment (ICD-10-PCS; principal; 2023-06-27)
DX: F10.139 Alcohol abuse with withdrawal, unspecified (principal); K85.90 Acute pancreatitis without necrosis or infection, unspecified; F41.9 Anxiety disorder, unspecified; K59.00 Constipation, unspecified; D64.9 Anemia, unspecified; F11.10 Opioid abuse, uncomplicated; F15.10 Other stimulant abuse, uncomplicated; F12.10 Cannabis abuse, uncomplicated; I10 Essential (primary) hypertension; R00.1 Bradycardia, unspecified; F17.210 Nicotine dependence, cigarettes, uncomplicated; Z98.51 Tubal ligation status; Z88.5 Allergy status to narcotic agent; Z79.899 Other long term (current) drug therapy
CPT/HCPCS: 36415; 71045; 74177; 80048; 80053; 80307; 81001; 81003; 83690; 83735; 83880; 84100; 84484; 84703; 85025; 85060; 93005; 93010; A9270; G0480; J0360; J1630; J1650; J2060; J2270; J2405; J3010; J3411; J3475; J3480; J3490; J7030; J7060; J7121; Q0177; Q9967

== ENCOUNTER 2023-10-12 14:15 | Emergency (ER) | payer OTHER ==
[~2023-10-12] VITALS: Ht 162.6 cm; Wt 54.8 kg
[~2023-10-12 14:15] MED LIST changes: +AMLODIPINE BESY10 MG PO; +CLONIDINE HCL0.1 MG PO; +FOLIC ACID1 MG PO; +ONDANSETRON ODT4 MG PO; +THERA TABLET400 MCG PO; +TRAZODONE HCL50 MG PO; +VITAMIN B-1100 MG PO
[2023-10-12] MEDS ORDERED: SODIUM CHLORIDE 0.9% 1,000 ML IV ONE ×2 (14:45→16:15)
[2023-10-12] MEDS ORDERED: LORazepam 2 MG/ML VIAL IV ONE ×2 (14:45→16:15)
[2023-10-12] MEDS ORDERED: PANTOPRAZOLE SODIUM 40 MG/10 ML VIAL IV ONE (14:45)
[2023-10-12] MEDS ORDERED: ondansetron HCL 4 MG/2 ML VIAL IV ONE (14:45)
[2023-10-12] MEDS ORDERED: OMEPRAZOLE20 MG PO (14:52)
[2023-10-12 15:46] LABS: BASOPHILS 0.1 % (0-2); EOSINOPHILS 0.1 % (0-6); HEMATOCRIT 42.4 % (35.0-50.0); HEMOGLOBIN 13.8 g/dL (12.0-18.0); MCH 30.9 (27-36); MCHC 32.6 g/dl (30-36); MCV 94.9 fl (81-99); MONOCYTES 0.8 % (0-12); RBC 4.47 M/ul (4.3-5.7); RDW 18.3 (10.5-15.0)
[2023-10-12 16:03] LABS: ALBUMIN 2.5 g/dL (3.4-5.0); ALBUMIN/GLOBULIN RATIO 0.71 (1.1-2.4); ALCOHOL, MEDICAL 10 ng/dL (<3); ALKALINE PHOSPHATASE 259 U/L (46-116); ALT (SGPT) 104 U/L (14-59); ANION GAP 22.9 (7-21); AST (SGOT) 69 U/L (15-37); BUN/CREATININE RATIO 4.83 (6.0-28.6); CALCIUM 8.7 mg/dL (8.5-10.1); CARBON DIOXIDE 19 mmol/L (21-32); CHLORIDE 87 mmol/L (98-107); CREATININE, SERUM 2.48 mg/dL (0.55-1.02); GLOMERULAR FILTRATION RATE,EST 25 mL/min (>60); PLATELET COUNT 28 K/uL (140-440); POTASSIUM 2.9 mmol/L (3.5-5.1); SMEAR REVIEW BLOOD SEE COMMENTS; UREA NITROGEN 12 mg/dL (7-18)
[2023-10-12] MEDS ORDERED: LIDOCAINE 2% VISCOUS 6 ML SYR TOP ONE (16:15)
[2023-10-12] MEDS ORDERED: MAGNESIUM SULFATE 2 GM/50 ML BAG IV ONE ×2 (16:45→21:30)
[2023-10-12] MEDS ORDERED: LORazepam 2 MG/ML VIAL IV PRN (16:45)
[2023-10-12] MEDS ORDERED: POTASSIUM CHLORIDE 10 MEQ/100 ML BAG IV SCH (16:45)
[2023-10-12 16:54] LABS: BILIRUBIN, URINE POSITIVE (negative); BLOOD/HGB, URINE LARGE (Negative); KETONE, URINE TRACE (Negative); LEUK ESTERASE, URINE MODERATE (negative); NITRITE, URINE NEGATIVE (negative); PH, URINE 6.5 (5-7)
[2023-10-12 17:00] LABS: PREGNANCY TEST, URINE NEGATIVE (NEG)
[2023-10-12 17:01] LABS: BACTERIA, URINE 1+ /hpf (negative); CASTS, URINE NONE SEEN \\lpf; COLLECTION TYPE, URINE CLEAN CATCH; CRYSTALS, URINE NONE SEEN (0-1+); EPITHELIAL CELLS, URINE SQUAMOUS 1+ /lpf (0-1+); RED BLOOD CELLS, URINE 21-40 /hpf (0-5); REFLEX CULTURE, URINE Yes (No); WHITE BLOOD CELLS, URINE 41-50 /HPF (0-5)
[2023-10-12 17:15] LABS: AMPHETAMINES, URINE NEGATIVE (NEGATIVE); BARBITURATES, URINE NEGATIVE (NEGATIVE); BENZODIAZEPINE, URINE NEGATIVE (NEGATIVE); BUPRENORPHINE, URINE NEGATIVE (NEGATIVE); CANNABINOID, URINE POSITIVE (NEGATIVE); COCAINE, URINE NEGATIVE (NEGATIVE); ECSTASY, URINE NEGATIVE (NEGATIVE); FENTANYL, URINE NEGATIVE (NEGATIVE); METHADONE, URINE NEGATIVE (NEGATIVE); OPIATES, URINE NEGATIVE (NEGATIVE); OXYCODONE, URINE NEGATIVE (NEGATIVE); PHENCYCLIDINE, URINE NEGATIVE (NEGATIVE)
[2023-10-12] MEDS ORDERED: ETOMIDATE 40 MG/20 ML VIAL IV ONE (17:20)
[2023-10-12] MEDS ORDERED: ROCURONIUM BROMIDE 50 MG/5 ML VIAL IV ONE (17:20)
[2023-10-12] MEDS ORDERED: propofoL 200 MG/20 ML VIAL ONE ×2 (17:31→18:54)
[2023-10-12] MEDS ORDERED: propofoL 200 MG/20 ML VIAL IV ONE ×2 (17:45→19:15)
[2023-10-12] MEDS ORDERED: ACETAMINOPHEN 1,000 MG/100 ML VIAL IV ONE (18:15)
[2023-10-12 18:22] LABS: HCO3, BLOOD GAS 12.7 mmol/L (22-26); O2 SATURATION, BLOOD GAS 97.7 % (95.0-100.0); PCO2, BLOOD GAS 33.8 mmHg (35-45); PH, BLOOD GAS 7.19 (7.35-7.45); PO2, BLOOD GAS 108 mmHg (80-100); TOTAL CO2, BLOOD GAS 13.6
[2023-10-12 18:23] LABS: OXYGEN RECEIVED, BLOOD GAS 28%
[2023-10-12] MEDS ORDERED: CEFTRIAXONE/SODIUM CHLORIDE 2 GM/100 ML PIGGYBACK IV ONE (18:45)
[2023-10-12 19:15] LABS: BASOPHILS 0.4 % (0-2); EOSINOPHILS 0.3 % (0-6); LYMPHOCYTES 5.1 % (24-44); MCHC 32.3 g/dl (30-36); MONOCYTES 1.6 % (0-12); NEUTROPHILS 92.6 % (39-80); RBC 3.55 M/ul (4.3-5.7); RDW 18.1 (10.5-15.0)
[2023-10-12 19:19] LABS: INR 2.13 (0.80-1.30); PROTIME 22.9 Sec (11.2-14.2)
[2023-10-12 19:23] LABS: ALBUMIN 1.6 g/dL (3.4-5.0); ALBUMIN/GLOBULIN RATIO 0.67 (1.1-2.4); ANION GAP 22.3 (7-21); BILIRUBIN, TOTAL 2.2 ng/dL (0.2-1.0); BUN/CREATININE RATIO 4.87 (6.0-28.6); CALCIUM 7.3 mg/dL (8.5-10.1); CREATININE, SERUM 2.46 mg/dL (0.55-1.02); POTASSIUM 3.3 mmol/L (3.5-5.1)
[2023-10-12] MEDS ORDERED: PHENOBARBITAL SOD 130 MG/ML VIAL IV ONE ×2 (19:30→20:15)
[2023-10-12] MEDS ORDERED: NOREPINEPHRINE BITARTRATE 250 ML IV SCH (19:30)
[2023-10-12 19:37] LABS: SMEAR REVIEW BLOOD SEE COMMENTS
[2023-10-12 19:40] LABS: PLATELET COUNT 13 K/uL (140-440)
[2023-10-12] MEDS ORDERED: SODIUM BICARBONATE 50 MEQ/50 ML SYR IV ONE (20:15)
[2023-10-12] MEDS ORDERED: SODIUM BICARBONATE 150 MEQ in DEXTROSE 5% 1,000 ML IV SCH (20:15)
[2023-10-12] MEDS ORDERED: LACTATED RINGER'S 1,000 ML IV ONE (20:15)
[2023-10-12] MEDS ORDERED: SODIUM BICARBONATE 50 MEQ/50 ML VIAL ONE ×3 (20:26→23:09)
[2023-10-12 21:02] LABS: PH, VENOUS 7.284 (7.31-7.41)
[2023-10-12 21:03] LABS: ABO A; ANTIBODY SCREEN NEGATIVE; RH POSITIVE
[2023-10-12] MEDS ORDERED: ALBUMIN HUMAN 25% 100 ML BTL IV ONE (21:30)
[2023-10-12 21:55] LABS: HEMATOCRIT 31.9 % (35.0-50.0); HEMOGLOBIN 10.4 g/dL (12.0-18.0); MCH 31.1 (27-36); MCHC 32.7 g/dl (30-36); MCV 95.1 fl (81-99); RBC 3.35 M/ul (4.3-5.7); RDW 18.2 (10.5-15.0)
[2023-10-12 22:07] LABS: PLATELET COUNT 13 K/uL (140-440)
[2023-10-12 22:08] LABS: ANION GAP 22.7 (7-21); BUN/CREATININE RATIO 3.84 (6.0-28.6); CALCIUM 7.1 mg/dL (8.5-10.1); CREATININE, SERUM 2.86 mg/dL (0.55-1.02); POTASSIUM 2.7 mmol/L (3.5-5.1)
[2023-10-12 22:11] LABS: BANDS, MANUAL DIFF 6; EOSINOPHILS, MANUAL DIFF 3; LYMPHOCYTES, MANUAL DIFF 6; MONOCYTES, MANUAL DIFF 9; NEUTROPHILS, MANUAL DIFF 76
[2023-10-12 23:13] VITALS: BP 107/67
[2023-10-12] MEDS ORDERED: POTASSIUM CHLORIDE 10 MEQ/100 ML BAG IV ONE (23:15)
--- NOTE | 2023-10-13 17:05 | EKG ---
[facility] [address] [place], [place] [address] Signed Sinus tachycardia Otherwise normal ECG Confirmed by Gomez Graves MD ([id number]) on 10/13/2023 5:05:20 PM Electronically Signed By: GOMEZ GRAVES MD 10/13/23 1705 PATIENT NAME: SHERJOEL JO Electrocardiogram DATE OF : [birth year] PHYSICIAN: GOMEZ GRAVES MD REPORT #: [id number] REPORT IS CONFIDENTIAL AND NOT TO BE RELEASED WITHOUT AUTHORIZATION
== END 2023-10-12 23:13 | disposition short-term general hospital (02) ==
LOC: ED 14:15
PROVIDERS: Emergency Medicine; Family Medicine
DX: F10.239 Alcohol dependence with withdrawal, unspecified (principal); A41.9 Sepsis, unspecified organism; N12 Tubulo-interstitial nephritis, 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 acute or chronic; K74.60 Unspecified cirrhosis of liver; D68.9 Coagulation defect, unspecified; K52.9 Noninfective gastroenteritis and colitis, unspecified; E83.42 Hypomagnesemia; I95.9 Hypotension, unspecified; N19 Unspecified kidney failure; D69.6 Thrombocytopenia, unspecified; F17.200 Nicotine dependence, unspecified, uncomplicated; Z88.5 Allergy status to narcotic agent; Z79.899 Other long term (current) drug therapy
CPT/HCPCS: 31500; 36415; 70450; 71045; 71260; 74177; 80048; 80053; 80307; 81001; 82803; 83605; 83690; 83735; 84100; 84484; 84703; 85025; 85060; 85384; 85610; 85730; 86850; 86900; 86901; 86922; 93005; 93010; G0480; J0131; J0696; J2060; J2405; J2470; J2560; J3475; J3480; J7030; J7070; J7121; P9047; P9059; Q9967

== ENCOUNTER 2024-02-09 21:09 | Emergency (ER) | payer OTHER ==
[~2024-02-09] VITALS: Ht 162.6 cm; Wt 53.5 kg
--- OUTSIDE RECORDS SUMMARY | ~2024-02-09 | XMS | Continuity of Care Document ---
Demographics + + + | Address | [address] | | | [place] [address] | + + + | Preferred Language | Unknown | + + + | Marital Status | Unknown | + + + | Nondenominational Affiliation | Unknown | + + + | Race | or | + + + | Ethnic Group | Not or | + + + Author + + + | Author | [facility] | + + + | Organization | [facility] | + + + | Address | [address] | | | [place] [address] | + + + | Phone | | + + + Care Team Providers + + + + | Care Middleware Administrator Name | Role | Phone | + [...]
[2024-02-10 00:50] VITALS: BP 132/92
[2024-02-10] MEDS ORDERED: LORazepam 1 MG HOME.PACK PO ONE (01:00)
== END 2024-02-10 00:50 | disposition home or self-care (01) ==
LOC: ED 21:09
DX: F41.9 Anxiety disorder, unspecified (principal); F17.200 Nicotine dependence, unspecified, uncomplicated; Z88.5 Allergy status to narcotic agent; Z79.899 Other long term (current) drug therapy
CPT/HCPCS: 99283

== ENCOUNTER 2024-02-17 08:52 | Emergency (ER) | payer OTHER ==
[~2024-02-17] VITALS: Ht 162.6 cm; Wt 53.1 kg
--- OUTSIDE RECORDS SUMMARY | ~2024-02-17 | XMS | Continuity of Care Document ---
Demographics + + + | Address | [address] | | | [place] [address] | + + + | Preferred Language | Unknown | + + + | Marital Status | Unknown | + + + | Taoism Affiliation | Unknown | + + + | Race | or | + + + | Ethnic Group | Not or | + + + Author + + + | Author | [facility] | + + + | Organization | [facility] | + + + | Address | [address] | | | [place] [address] | + + + | Phone | | + + + Care Team Providers + + + + | Care Sole Assessor Name | Role | Phone | + [...]
--- OUTSIDE RECORDS SUMMARY | 2024-02-17 08:53 | XMS ---
PreManage Notification: JOEL SANTACRUZ Security Tipple Repairer Events No recent Security Events currently on file CRITERIA MET - [facility] - 2 Visits in 30 Days CARE PROVIDERS POLA TAY Internal Medicine: Infectious Disease Current PHONE: [phone] Maxine has no Care Guidelines for this patient. E.D. VISIT COUNT ([address] 4 [facility] 1 [facility] ([facility] 1 [facility] TOTAL 6 NOTE: Visits indicate total known visits. ED/UCC VISIT TRACKING (12 MO.) 02/17/2024 08:52 [facility] [place] TYPE: Emergency COMPLAINT: - CHEST PAIN 02/09/2024 21:09 [facility] [place] TYPE: Emergency COMPLAINT: - ANXIETY DIAGNOSES: - Allergy status to narcotic agent - Anxiety disorder, unspecified - Nicotine dependence, unspecified, uncomplicated - [facility] [place] [facility] [place] [place] 10/12/2023 14:16 [facility] [place] TYPE: Emergency COMPLAINT: - HEART RATE ISSUE DIAGNOSES: - Alcohol dependence with withdrawal, unspecified - Allergy status to narcotic agent - Coagulation defect, unspecified - Hypomagnesemia - Hypotension, unspecified - Nicotine dependence, unspecified, uncomplicated - Noninfective gastroenteritis and colitis, unspecified - Other [place] [facility] [place] drug therapy - Sepsis, unspecified organism - Thrombocytopenia, unspecified - Tubulo-interstitial nephritis, 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 acute or chronic - Unspecified cirrhosis of liver - Unspecified kidney failure [facility] TYPE: Emergency DIAGNOSES: - Alcohol use, unspecified with intoxication, unspecified - Other fatigue - Tachycardia, unspecified - Chest Pain - cp - Fatigue 06/27/2023 03:45 [facility] [place] TYPE: Emergency COMPLAINT: - CHEST PAIN 03/28/2023 00:43 [facility] [place] [facility] TYPE: Emergency COMPLAINT: - dizzy, lightheaded, abdominal pain DIAGNOSES: - Lower abdominal pain, unspecified - Abdominal Pain - dizzy, lightheaded, abdominal pain INPATIENT VISIT TRACKING (12 MO.) 10/13/2023 02:23 [facility] TYPE: Orthopedic Surgery COMPLAINT: - Acute Renal Failure DIAGNOSES: - Acute kidney failure, unspecified - Alcohol abuse, uncomplicated - Sepsis, unspecified organism - Severe sepsis with septic shock 06/27/2023 05:[address] [facility] [address] [facility] [place] TYPE: Medical Surgical COMPLAINT: - PANCREATITIS/ETOH WITHDRAWAL DIAGNOSES: - Acute pancreatitis without necrosis or infection, unspecified - Alcohol abuse with withdrawal, unspecified - Alcohol abuse with withdrawal, unspecified - Alcohol dependence with withdrawal, unspecified - Allergy status to narcotic agent - Allergy status to narcotic agent - Anemia, unspecified - Anemia, unspecified - Anxiety disorder, unspecified - Anxiety disorder, unspecified - Bradycardia, unspecified - Bradycardia, unspecified - Cannabis abuse, uncomplicated - Cannabis abuse, uncomplicated - Constipation, unspecified - Constipation, unspecified - Essential (primary) hypertension - Essential (primary) hypertension - Nicotine dependence, cigarettes, uncomplicated - Nicotine dependence, cigarettes, uncomplicated - Opioid abuse, uncomplicated - Opioid abuse, uncomplicated - [place] [facility] [place] - [place] [facility] [place] drug therapy - Other stimulant abuse, uncomplicated - Other stimulant abuse, uncomplicated - Tubal ligation status - Tubal ligation status [email or web address]
[2024-02-17] MEDS ORDERED: K-TAB ER20 MEQ PO (09:11)
[2024-02-17] MEDS ORDERED: FOLIC ACID1 MG PO (09:11)
[2024-02-17] MEDS ORDERED: CEFTRIAXONE/SODIUM CHLORIDE 2 GM/100 ML PIGGYBACK IV ONE (09:15)
[2024-02-17] MEDS ORDERED: SODIUM CHLORIDE 0.9% 1,000 ML IV PRN (09:15)
[2024-02-17 09:20] LABS: BASOPHILS 5.4 % (0-2); EOSINOPHILS 0.2 % (0-6); HEMATOCRIT 43.6 % (35.0-50.0); HEMOGLOBIN 14.5 g/dL (12.0-18.0); LYMPHOCYTES 16.8 % (24-44); MCHC 33.2 g/dl (30-36); MCV 84.2 fl (81-99); MONOCYTES 2.6 % (0-12); PLATELET COUNT 285 K/uL (140-440); RBC 5.17 M/ul (4.3-5.7); RDW 17.6 (10.5-15.0)
[2024-02-17] MEDS ORDERED: ondansetron HCL 4 MG/2 ML VIAL ONE (09:23)
[2024-02-17 09:33] LABS: BILIRUBIN, URINE POSITIVE (negative); BLOOD/HGB, URINE TRACE-I (Negative); KETONE, URINE >=80 (Negative); LEUK ESTERASE, URINE SMALL (negative); NITRITE, URINE NEGATIVE (negative)
[2024-02-17 09:35] LABS: INR 1.08 (0.80-1.30); PROTIME 13.9 Sec (11.2-14.2)
[2024-02-17 09:42] LABS: BACTERIA, URINE 1+ /hpf (negative); CASTS, URINE NONE SEEN \\lpf; COLLECTION TYPE, URINE CLEAN CATCH; CRYSTALS, URINE NONE SEEN (0-1+); REFLEX CULTURE, URINE No (No); WHITE BLOOD CELLS, URINE 21-40 /HPF (0-5)
[2024-02-17 09:43] LABS: LACTIC ACID, BLOOD 1.1 mmol/L (0.4-2.0)
[2024-02-17 09:45] LABS: ALBUMIN 4.2 g/dL (3.4-5.0); ALBUMIN/GLOBULIN RATIO 1.08 (1.1-2.4); ANION GAP 19.1 (7-21); BILIRUBIN, TOTAL 0.6 ng/dL (0.2-1.0); BUN/CREATININE RATIO 4.59 (6.0-28.6); CALCIUM 9.2 mg/dL (8.5-10.1); CREATININE, SERUM 1.96 mg/dL (0.55-1.02); POTASSIUM 3.1 mmol/L (3.5-5.1); PROTEIN, TOTAL 8.1 g/dL (6.4-8.2)
[2024-02-17] MEDS ORDERED: ondansetron HCL 4 MG/2 ML VIAL IV ONE (09:45)
[2024-02-17] MEDS ORDERED: SODIUM CHLORIDE 0.9% 1,000 ML IV ONE (10:30)
[2024-02-17 11:04] LABS: AMPHETAMINES, URINE POSITIVE (NEGATIVE); BARBITURATES, URINE NEGATIVE (NEGATIVE); BENZODIAZEPINE, URINE NEGATIVE (NEGATIVE); BUPRENORPHINE, URINE NEGATIVE (NEGATIVE); CANNABINOID, URINE POSITIVE (NEGATIVE); COCAINE, URINE NEGATIVE (NEGATIVE); ECSTASY, URINE NEGATIVE (NEGATIVE); FENTANYL, URINE NEGATIVE (NEGATIVE); METHADONE, URINE POSITIVE (NEGATIVE); OPIATES, URINE POSITIVE (NEGATIVE); OXYCODONE, URINE NEGATIVE (NEGATIVE); PHENCYCLIDINE, URINE NEGATIVE (NEGATIVE)
[2024-02-17 11:28] LABS: INFLUENZA B NAA NEGATIVE (NEGATIVE); RESPIRATORY SYNCYTIAL VIR NAA NEGATIVE (NEGATIVE)
[2024-02-17] MEDS ORDERED: CEPHALEXIN500 MG PO (12:15)
[2024-02-17 12:29] VITALS: BP 124/87
--- NOTE | 2024-02-17 22:00 | EKG ---
[facility] [address] [place] [address] Signed Sinus tachycardia Otherwise normal ECG Confirmed by Latisha Suazo MD () on 02/17/2024 9:59:53 PM Electronically Signed By: LATISHA SUAZO MD 02/17/242199 PATIENT NAME: NAYANA JOHNSONJOEL Electrocardiogram DATE OF : [birth year] PHYSICIAN: LATISHA SUAZO MD REPORT #: [id number] REPORT IS CONFIDENTIAL AND NOT TO BE RELEASED WITHOUT AUTHORIZATION
== END 2024-02-17 12:25 | disposition home or self-care (01) ==
LOC: ED 08:52
PROVIDERS: Emergency Medicine
DX: N39.0 Urinary tract infection, site not specified (principal); F17.200 Nicotine dependence, unspecified, uncomplicated; Z88.5 Allergy status to narcotic agent; Z79.899 Other long term (current) drug therapy
CPT/HCPCS: 36415; 51701; 70450; 71045; 80053; 80307; 81001; 82803; 83605; 85025; 85610; 87502; 93005; 93010; 99285-25; G0480; J0696; J2405; J7030; U0002

== ENCOUNTER 2024-02-18 12:23 | Emergency (ER) | payer OTHER ==
[~2024-02-18] VITALS: Ht 162.6 cm; Wt 55.3 kg
--- OUTSIDE RECORDS SUMMARY | ~2024-02-18 | XMS | Continuity of Care Document ---
Demographics + + + | Address | [address] | | | [place] [address] | + + + | Preferred Language | Unknown | + + + | Marital Status | Unknown | + + + | Mosque Affiliation | Unknown | + + + | Race | or | + + + | Ethnic Group | Not or | + + + Author + + + | Author | [facility] | + + + | Organization | [facility] | + + + | Address | [address] | | | [place] [address] | + + + | Phone | | + + + Care Team Providers + + + + | Care Burning Machine Operator Name | Role | Phone | + [...]
[~2024-02-18 12:23] MED LIST changes: +CEPHALEXIN500 MG PO; +K-TAB ER20 MEQ PO
--- OUTSIDE RECORDS SUMMARY | 2024-02-18 12:26 | XMS ---
PreManage Notification: JOEL SANTACRUZ Security Slot Floorperson Events No recent Security Events currently on file CRITERIA MET - [facility] - 2 Visits in 30 Days CARE PROVIDERS POLA TAY Internal Medicine: Infectious Disease Current PHONE: [phone] Maxine has no Care Guidelines for this patient. E.D. VISIT COUNT (12 MO.) 5 [facility] [place] [facility] 1 [facility]el Alejo ([facility]) 1 [facility] TOTAL 7 NOTE: Visits indicate total known visits. ED/UCC VISIT TRACKING (12 MO.) 02/18/2024 12:24 [facility] [place] TYPE: Emergency COMPLAINT: - ABDOMINAL PAIN 02/17/2024 08:52 [facility] [place] TYPE: Emergency COMPLAINT: - CHEST PAIN 02/09/2024 21:09 [facility] [place] TYPE: Emergency COMPLAINT: - ANXIETY DIAGNOSES: - Allergy status to narcotic agent - Anxiety disorder, unspecified - Nicotine dependence, unspecified, uncomplicated - Other [facility] (current) drug therapy 10/12/2023 14:16 [facility] [place] TYPE: Emergency COMPLAINT: - HEART RATE ISSUE DIAGNOSES: - Alcohol dependence with withdrawal, unspecified - Allergy status to narcotic agent - Coagulation defect, unspecified - Hypomagnesemia - Hypotension, unspecified - Nicotine dependence, unspecified, uncomplicated - Noninfective gastroenteritis and colitis, unspecified - 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 [place] [facility] TYPE: Emergency COMPLAINT: - dizzy, lightheaded, abdominal pain DIAGNOSES: - Lower abdominal pain, unspecified - Abdominal Pain - dizzy, lightheaded, abdominal pain INPATIENT VISIT TRACKING (12 MO.) 10/13/2023 02:23 [facility] TYPE: Orthopedic Surgery COMPLAINT: - Acute Renal Failure DIAGNOSES: - Acute kidney failure, unspecified - Alcohol abuse, uncomplicated - Sepsis, unspecified organism - Severe sepsis with septic shock 06/27/2023 05:[address] 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
[2024-02-18] MEDS ORDERED: ondansetron HCL 4 MG/2 ML VIAL IV ONE ×2 (12:30→16:45)
[2024-02-18 12:48] LABS: BASOPHILS 0.1 % (0-2); HEMATOCRIT 42.9 % (35.0-50.0); HEMOGLOBIN 14.4 g/dL (12.0-18.0); LYMPHOCYTES 4.9 % (24-44); MCHC 33.6 g/dl (30-36); MCV 83.5 fl (81-99); MONOCYTES 2.2 % (0-12); NEUTROPHILS 92.8 % (39-80); PLATELET COUNT 217 K/uL (140-440); RBC 5.14 M/ul (4.3-5.7); RDW 17.5 (10.5-15.0)
[2024-02-18 13:05] LABS: ALBUMIN 4.4 g/dL (3.4-5.0); ALBUMIN/GLOBULIN RATIO 1.19 (1.1-2.4); ANION GAP 17.2 (7-21); BILIRUBIN, TOTAL 0.4 ng/dL (0.2-1.0); BUN/CREATININE RATIO 2.56 (6.0-28.6); CREATININE, SERUM 2.73 mg/dL (0.55-1.02); POTASSIUM 3.2 mmol/L (3.5-5.1); PROTEIN, TOTAL 8.1 g/dL (6.4-8.2)
[2024-02-18 13:06] LABS: ALCOHOL, MEDICAL <3 ng/dL (<3); CREATINE KINASE 110 U/L (26-192)
[2024-02-18 13:09] LABS: PH, VENOUS 7.446 (7.31-7.41)
[2024-02-18 13:40] LABS: BILIRUBIN, URINE POSITIVE (negative); BLOOD/HGB, URINE NEGATIVE (Negative); KETONE, URINE >=80 (Negative); LEUK ESTERASE, URINE NEGATIVE (negative); NITRITE, URINE NEGATIVE (negative)
[2024-02-18 14:15] LABS: EPITHELIAL CELLS, URINE SQUAMOUS 1+ /lpf (0-1+)
[2024-02-18 14:18] LABS: BACTERIA, URINE NONE SEEN /hpf (negative); CASTS, URINE NONE SEEN \\lpf; COLLECTION TYPE, URINE CLEAN CATCH; CRYSTALS, URINE NONE SEEN (0-1+); RED BLOOD CELLS, URINE 0-1 /hpf (0-5); REFLEX CULTURE, URINE No (No)
[2024-02-18 14:30] LABS: AMPHETAMINES, URINE POSITIVE (NEGATIVE); BARBITURATES, URINE NEGATIVE (NEGATIVE); BENZODIAZEPINE, URINE NEGATIVE (NEGATIVE); BUPRENORPHINE, URINE NEGATIVE (NEGATIVE); CANNABINOID, URINE POSITIVE (NEGATIVE); COCAINE, URINE NEGATIVE (NEGATIVE); ECSTASY, URINE NEGATIVE (NEGATIVE); FENTANYL, URINE NEGATIVE (NEGATIVE); METHADONE, URINE POSITIVE (NEGATIVE); OPIATES, URINE NEGATIVE (NEGATIVE); OXYCODONE, URINE NEGATIVE (NEGATIVE); PHENCYCLIDINE, URINE NEGATIVE (NEGATIVE)
[2024-02-18 14:46] LABS: ACETAMINOPHEN 0 ug/mL (10-30); SALICYLATE 3.4 mg/dL (2.8-20.0)
[2024-02-18] MEDS ORDERED: POTASSIUM CHLORIDE 10 MEQ TABCR PO ONE (15:00)
[2024-02-18] MEDS ORDERED: SODIUM CHLORIDE 0.9% 1,000 ML IV PRN (15:00)
[2024-02-18] MEDS ORDERED: ACETAMINOPHEN 500 MG TAB PO ONE (16:45)
[2024-02-18 18:15] VITALS: BP 161/114
--- NOTE | 2024-02-18 22:57 | EKG ---
[facility] [address] [place] [address] Signed Sinus tachycardia Otherwise normal ECG When compared with ECG of 17-FEB-2024 08:59, No significant change was found Confirmed by Latisha Suazo MD () on 02/18/2024 10:57:44 PM Electronically Signed By: LATISHA SUAZO MD 02/18/24 2257 PATIENT NAME: JOEL SANTACRUZ Electrocardiogram DATE OF : [birth year] PHYSICIAN: LATISHA SUAZO MD REPORT #: [id number] REPORT IS CONFIDENTIAL AND NOT TO BE RELEASED WITHOUT AUTHORIZATION
--- NOTE | 2024-02-18 23:00 | EKG ---
[facility] [address] [facility] [address] [place] [address] Signed Sinus tachycardia Otherwise normal ECG When compared with ECG of 18-FEB-2024 12:35, No significant change was found Confirmed by Latisha Suazo MD () on 02/18/2024 11:00:02 PM Electronically Signed By: LATISHA SUAZO MD 02/18/242299 PATIENT NAME: JOEL SANTACRUZ Electrocardiogram DATE OF : [birth year] PHYSICIAN: LATISHA SUAZO MD REPORT #: [id number] REPORT IS CONFIDENTIAL AND NOT TO BE RELEASED WITHOUT AUTHORIZATION
== END 2024-02-18 18:15 | disposition home or self-care (01) ==
LOC: ED 12:23
PROVIDERS: Emergency Medicine
DX: F19.10 Other psychoactive substance abuse, uncomplicated (principal); F17.200 Nicotine dependence, unspecified, uncomplicated; Z88.5 Allergy status to narcotic agent; Z79.899 Other long term (current) drug therapy
CPT/HCPCS: 36415; 51701; 80053; 80307; 81001; 82010; 82553; 82803; 83690; 83735; 84484; 85025; 93005; 93010; 99284-25; A9270; G0480; J2405; J7030

== ENCOUNTER 2024-02-20 12:34 | Inpatient (IN) | payer OTHER ==
[~2024-02-20] VITALS: Ht 162.6 cm; Wt 54.1 kg
--- OUTSIDE RECORDS SUMMARY | ~2024-02-20 | XMS | Continuity of Care Document ---
Demographics + + + | Address | [address] | | | [place] [address] | + + + | Preferred Language | Unknown | + + + | Marital Status | Unknown | + + + | Quaker Affiliation | Unknown | + + + | Race | or | + + + | Ethnic Group | Not or | + + + Author + + + | Author | [facility] | + + + | Organization | [facility] | + + + | Address | [address] | | | [place] [address] | + + + | Phone | | + + + Care Team Providers + + + + | Care Home Health Aide Caregiver Name | Role | Phone | + + + + Unavailable | Unavailable | + + + + Allergies No information. Encounters No information. Functional Status No information. Immunizations No information. Medications No information. Problems + + + + | date | description | facility | + + + + | 2023-12-29 22:48:19 | Sepsis, unspecified | [facility] | | | organism | | + + + + | 2023-12-29 22:48:19 | Alcohol abuse, | [facility] | | | uncomplicated | | + + + + | 2023-12-29 22:48:19 | Alcohol use, unspecified | [facility] | | | with withdrawal, | | | | uncomplicated | | + + + + | 2023-12-29 22:48:19 | Tubulo-interstitial | [facility] | | | nephritis, 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 | | | | acute or chronic | | + + + + | 2023-12-29 22:48:19 | Severe sepsis with septic | [facility] | | | shock | | + + + + Procedures No information. Results/Labs No information. Social History +--------+ + + | date | description | facility | +--------+ + + Vital Signs No information."
--- OUTSIDE RECORDS SUMMARY | ~2024-02-20 | XMS | Continuity of Care Document ---
Demographics + + + | Address | [address] | | | [place] [address] | + + + | Preferred Language | Unknown | + + + | Marital Status | Unknown | + + + | Holiness Affiliation | Unknown | + + + | Race | or | + + + | Ethnic Group | Not or | + + + Author + + + | Author | [facility] | + + + | Organization | [facility] | + + + | Address | [address] | | | [place] [address] | + + + | Phone | | + + + Care Team Providers + + + + | Care Clay Temperer Name | Role | Phone | + [...]
--- OUTSIDE RECORDS SUMMARY | 2024-02-20 12:43 | XMS ---
PreManage Notification: JOEL SANTACRUZ Security Aboriginal Community Council Member Events No recent Security Events currently on file CRITERIA MET - 6 ED Visits in 6 Months - [facility] - 2 Visits in 30 Days CARE PROVIDERS POLA TAY Internal Medicine: Infectious Disease Current PHONE: [phone] Maxine has no Care Guidelines for this patient. [facility] VISIT COUNT (12 MO.) 6 [facility] 1 [facility] [place] TOTAL 8 NOTE: Visits indicate total known visits. ED/UCC VISIT TRACKING (12 MO.) 02/20/2024 12:35 [facility] [place] TYPE: Emergency COMPLAINT: - SUBSTANCE ABUSE 02/18/2024 12:24 [facility] [place] TYPE: Emergency COMPLAINT: - ABDOMINAL PAIN 02/17/2024 08:52 [facility] [place] TYPE: Emergency COMPLAINT: - CHEST PAIN 02/09/2024 21:09 [facility] [place] TYPE: Emergency COMPLAINT: - ANXIETY DIAGNOSES: - Allergy status to narcotic agent - Anxiety disorder, unspecified - Nicotine dependence, unspecified, uncomplicated - Other prison (current) drug therapy 10/12/2023 14:16 [facility] [place] TYPE: Emergency COMPLAINT: - HEART RATE ISSUE DIAGNOSES: - Alcohol dependence with withdrawal, unspecified - Allergy status to narcotic agent - Coagulation defect, unspecified - Hypomagnesemia - Hypotension, unspecified - Nicotine dependence, unspecified, uncomplicated - Noninfective gastroenteritis and colitis, unspecified - Other prison (current) drug therapy - Sepsis, unspecified organism - Thrombocytopenia, unspecified - Tubulo-interstitial nephritis, 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 acute or chronic - Unspecified cirrhosis of liver - Unspecified kidney failure 09/08/2023 13:[address] [facility] ([facility] TYPE: Emergency DIAGNOSES: - Alcohol use, unspecified with intoxication, unspecified - Other fatigue - Tachycardia, unspecified - Chest Pain - cp - Fatigue 06/27/2023 03:45 [facility] [place] TYPE: Emergency COMPLAINT: - CHEST PAIN 03/28/2023 00:43 [facility] [place] [facility] TYPE: Emergency COMPLAINT: - dizzy, lightheaded, abdominal pain DIAGNOSES: - Lower abdominal pain, unspecified - Abdominal Pain - dizzy, lightheaded, abdominal pain INPATIENT VISIT TRACKING (12 MO.) 10/13/2023 02:23 [facility] TYPE: Orthopedic Surgery COMPLAINT: - Acute Renal Failure DIAGNOSES: - Acute kidney failure, unspecified - Alcohol abuse, uncomplicated - Sepsis, unspecified organism - Severe sepsis with septic shock 06/27/2023 05:[address] [facility] [place] TYPE: Medical Surgical [...] uncomplicated - Opioid abuse, uncomplicated - Other prison (current) drug therapy - Other prison (current) drug therapy - Other stimulant abuse, uncomplicated - Other stimulant abuse, uncomplicated - Tubal ligation status - Tubal ligation status [email or web address]
[2024-02-20 13:16] LABS: BASOPHILS 0.4 % (0-2); HEMATOCRIT 43.3 % (35.0-50.0); HEMOGLOBIN 14.3 g/dL (12.0-18.0); LYMPHOCYTES 11.2 % (24-44); MCH 27.8 (27-36); MCHC 33.1 g/dl (30-36); MCV 84.1 fl (81-99); MONOCYTES 3.8 % (0-12); NEUTROPHILS 84.6 % (39-80); PLATELET COUNT 207 K/uL (140-440); RBC 5.15 M/ul (4.3-5.7); RDW 17.8 (10.5-15.0)
[2024-02-20 13:29] LABS: ACETAMINOPHEN 0 ug/mL (10-30); ALBUMIN/GLOBULIN RATIO 1.11 (1.1-2.4); ALCOHOL, MEDICAL <3 ng/dL (<3); ALKALINE PHOSPHATASE 126 U/L (46-116); ALT (SGPT) 24 U/L (14-59); ANION GAP 15.7 (7-21); AST (SGOT) 30 U/L (15-37); BILIRUBIN, TOTAL 0.4 ng/dL (0.2-1.0); BUN/CREATININE RATIO 4.67 (6.0-28.6); CALCIUM 8.5 mg/dL (8.5-10.1); CARBON DIOXIDE 27 mmol/L (21-32); CHLORIDE 101 mmol/L (98-107); CREATININE, SERUM 3.21 mg/dL (0.55-1.02); GLOMERULAR FILTRATION RATE,EST 18 mL/min (>60); POTASSIUM 3.7 mmol/L (3.5-5.1); PROTEIN, TOTAL 7.6 g/dL (6.4-8.2); TSH, 3RD GENERATION 0.469 uIU/mL (0.358-3.740); UREA NITROGEN 15 mg/dL (7-18)
[2024-02-20] MEDS ORDERED: ondansetron HCL 4 MG/2 ML VIAL IV ONE (13:45)
[2024-02-20 13:51] LABS: BILIRUBIN, URINE NEGATIVE (negative); BLOOD/HGB, URINE SMALL (Negative); KETONE, URINE >=80 (Negative); LEUK ESTERASE, URINE NEGATIVE (negative); NITRITE, URINE NEGATIVE (negative)
[2024-02-20 13:57] LABS: CASTS, URINE NONE SEEN \\lpf; CRYSTALS, URINE NONE SEEN (0-1+); EPITHELIAL CELLS, URINE SQUAMOUS 2+ /lpf (0-1+); RED BLOOD CELLS, URINE 0-1 /hpf (0-5)
[2024-02-20 13:58] LABS: BACTERIA, URINE NONE SEEN /hpf (negative); COLLECTION TYPE, URINE CATH; REFLEX CULTURE, URINE No (No)
[2024-02-20 14:12] LABS: AMPHETAMINES, URINE NEGATIVE (NEGATIVE); BARBITURATES, URINE NEGATIVE (NEGATIVE); BENZODIAZEPINE, URINE NEGATIVE (NEGATIVE); BUPRENORPHINE, URINE NEGATIVE (NEGATIVE); CANNABINOID, URINE POSITIVE (NEGATIVE); COCAINE, URINE NEGATIVE (NEGATIVE); ECSTASY, URINE NEGATIVE (NEGATIVE); FENTANYL, URINE NEGATIVE (NEGATIVE); METHADONE, URINE POSITIVE (NEGATIVE); OPIATES, URINE NEGATIVE (NEGATIVE); OXYCODONE, URINE NEGATIVE (NEGATIVE); PHENCYCLIDINE, URINE NEGATIVE (NEGATIVE)
[2024-02-20] MEDS ORDERED: SODIUM CHLORIDE 0.9% 1,000 ML IV PRN ×2 (15:15→19:00)
[2024-02-20] MEDS ORDERED: LIDOCAINE & ANTACID 35 ML BTL PO ONE (16:15)
[2024-02-20] MEDS ORDERED: FAMOTIDINE 20 MG/ 2 ML VIAL IV ONE (16:15)
[2024-02-20 20:46] LABS: ANION GAP 12.1 (7-21); BUN/CREATININE RATIO 4.16 (6.0-28.6); CARBON DIOXIDE 24 mmol/L (21-32); CHLORIDE 105 mmol/L (98-107); CREATININE, SERUM 2.88 mg/dL (0.55-1.02); GLOMERULAR FILTRATION RATE,EST 20 mL/min (>60); POTASSIUM 3.1 mmol/L (3.5-5.1); SALICYLATE 2.4 mg/dL (2.8-20.0); UREA NITROGEN 12 mg/dL (7-18)
[2024-02-20] MEDS ORDERED: POTASSIUM CHLORIDE 10 MEQ TABCR PO ONE (21:45)
[2024-02-20] MEDS ORDERED: FAMOTIDINE 20 MG TAB PO ONE (22:45)
[2024-02-20] MEDS ORDERED: ACETAMINOPHEN 325 MG TAB PO PRN (22:45)
[2024-02-20] MEDS ORDERED: ONDANSETRON 4 MG TAB ODT SL ONE (22:45)
[2024-02-21] MEDS ORDERED: IBUPROFEN 600 MG TAB PO ONE (02:45)
[2024-02-21] MEDS ORDERED: CHLORDIAZEPOXIDE 25 MG CAP PO ONE (06:15)
[2024-02-21] MEDS ORDERED: SODIUM CHLORIDE 0.9% 500 ML IV PRN ×2 (07:45→10:00)
[2024-02-21] MEDS ORDERED: LORazepam 2 MG/ML VIAL IV ONE ×2 (07:45→13:00)
[2024-02-21] MEDS ORDERED: AMLODIPINE BESYLATE 5 MG TAB PO ONE (07:45)
[2024-02-21 08:59] LABS: BASOPHILS 1.4 % (0-2); EOSINOPHILS 0.1 % (0-6); HEMATOCRIT 42.3 % (35.0-50.0); HEMOGLOBIN 14.2 g/dL (12.0-18.0); LYMPHOCYTES 17.3 % (24-44); MCH 28.1 (27-36); MCHC 33.5 g/dl (30-36); MCV 83.9 fl (81-99); MONOCYTES 3.5 % (0-12); NEUTROPHILS 77.7 % (39-80); RBC 5.04 M/ul (4.3-5.7); RDW 17.4 (10.5-15.0)
[2024-02-21 09:12] LABS: ALBUMIN 4.1 g/dL (3.4-5.0); ANION GAP 16.5 (7-21); BILIRUBIN, TOTAL 0.5 ng/dL (0.2-1.0); BUN/CREATININE RATIO 3.82 (6.0-28.6); CALCIUM 8.8 mg/dL (8.5-10.1); CREATININE, SERUM 2.35 mg/dL (0.55-1.02); POTASSIUM 3.5 mmol/L (3.5-5.1); PROTEIN, TOTAL 8.2 g/dL (6.4-8.2)
[2024-02-21] MEDS ORDERED: ACETAMINOPHEN 325 MG TAB PO ONE (09:45)
[2024-02-21] MEDS ORDERED: ondansetron HCL 4 MG/2 ML VIAL IV ONE ×2 (09:45→10:15)
[2024-02-21] MEDS ORDERED: FAMOTIDINE 20 MG/ 2 ML VIAL IV ONE (10:15)
[2024-02-21] MEDS ORDERED: LABETALOL HCL 20 MG/4 ML VIAL IV ONE (11:45)
[2024-02-21] MEDS ORDERED: LACTATED RINGER'S 1,000 ML IV SCH ×2 (13:00→13:30)
[2024-02-21 13:10] LABS: ANION GAP 14.1 (7-21); BUN/CREATININE RATIO 3.57 (6.0-28.6); CALCIUM 8.6 mg/dL (8.5-10.1); CREATININE, SERUM 2.24 mg/dL (0.55-1.02); POTASSIUM 3.1 mmol/L (3.5-5.1)
[2024-02-21] MEDS ORDERED: HEParin SOD (PORCINE) 5,000 UNIT/ML SDV SUB-Q SCH (13:27)
[2024-02-21] MEDS ORDERED: THIAMINE HCL 100 MG,FOLIC ACID 1 MG,MULTIVITAMINS 10 ML in SODIUM CHLORIDE 0.9% 1,000 ML IV ONE (13:30)
[2024-02-21] MEDS ORDERED: ACETAMINOPHEN 325 MG TAB PO PRN (13:30)
[2024-02-21] MEDS ORDERED: bisacodyL 10 MG SUPP PR PRN (13:30)
[2024-02-21] MEDS ORDERED: ondansetron HCL 4 MG/2 ML VIAL IV PRN (13:30)
[2024-02-21] MEDS ORDERED: PROCHLORPERAZINE EDISYLATE 10 MG/2 ML VIAL IV PRN (13:30)
[2024-02-21] MEDS ORDERED: LORazepam 2 MG/ML VIAL IV/IM PRN (13:30)
[2024-02-21 15:03] VITALS: BP 150/103
--- NOTE | 2024-02-21 15:07 | NUR ---
DR. SWANSON IN TO SEE PATIENT AT THIS TIME.
[2024-02-21] MEDS ORDERED: GABAPENTIN 300 MG CAP PO SCH (15:55)
[2024-02-21] MEDS ORDERED: POTASSIUM CHLORIDE 10 MEQ TABCR PO ONE (16:00)
--- NOTE | 2024-02-21 16:16 | NUR ---
PATIENT ADMITTED TO ROOM 127 FOR ETOH W/D AND ACUTE KIDNEY INJURY AROUND 1445. PATIENT ABLE TO TRANSFER SELF TO CCU BED. PT HAS A SITTER 1:1 WITH HER RIGHT NOW DUE TO SUICIDIAL IDEATION. PT REPORTEDLY DRANK HALF OF A BOTTLE OF ISOPROPYL ALCOHOL IN AN ATTEMPT TO HARM HERSELF. PER CHART REVIEW OF RECENT ER VISITS, IT IS NOTED THAT PATIENT HAS STATED THAT HER AND HER ARE UNDERGOING A DIVORCE. PATIENT HAS STRUGGLED WITH ALCOHOL ADDICITION IN THE PAST AND FOR A LARGE PART OF HER LIFE. PT HAS BEEN IN THE ER THIS YEAR ON 02/08, 02/16, AND 02/17 FOR SEPERATE THINGS BEFORE BEING ADMITTED ON 02/19 FOR THIS INGESTION. WHEN ASKING PATIENT IF SHE STILL IS HAVING THOUGHTS OF HARMING HERSELF, SHE STATES YES. IV FLUID BANANA BAG INFUSING AT THIS TIME, AND THEN LR TO INFUSE AT 125 ML/HR. DR. SWANSON IN TO SE PATIENT SHORTLY AFTER HER ARRIVAL AND DISCUSSES PLAN OF CARE WITH HER. PT UP TO BSC AND FAIRLY STEADY ON HER FEET. PT APPRECIATIVE OF CARES. WILL CONTINUE TO MONITOR CLOSELY.
--- NOTE | 2024-02-21 18:44 | NUR ---
PATIENT CONTINUES TO REST CALMLY. PT USES CALL LIGHT WHEN SHE NEEDS TO GET UP TO USE THE COMMODE. HR IN THE 80s. SITTER REMAINS IN ROOM WITH DIRECT OBS OF PATIENT. PT ATE SMALL AMOUNT OF HER DINNER AND STATES SHE REALLY HASN'T HAD MUCH OF AN APPETITE IN THE LAST MONTH OR SO. PT PLEASANT AND APPEARS IN NO ACUTE DISTRESS.
--- NOTE | 2024-02-21 19:30 | NUR ---
Report received from Annie MASSEY. Patient resting in bed at bedside handoff with even and unlabored respirations. 1:1 sitter present in room. No needs identified at this time, IVF rate checked, infusing per order. Call light in reach. Will continue plan of care.
[2024-02-21 20:00] VITALS: BP 160/117
--- NOTE | 2024-02-21 20:17 | NUR ---
In room to assess patient. Pt up to BSC to void, 400 ml clear yellow urine noted. Pt steady gait and cooperative. Back to bed and assessment complete. Pt alert, endorses headache, tremors, auditory hallucinations, giving her a CIWA score of 8. Pt verbally requests PRN ativan, administered per order. Pt tachycardic with exertion up to 140, BP remains elevated at 160/117. SPO2 100% on RA. No pain reported at this time other than headache. Pt has 1:1 sitter in room for SI. Pt polite and cooperative with cares. Denies further needs at this time.
[2024-02-21] MEDS ORDERED: MELATONIN 3 MG TAB PO PRN (21:00)
[2024-02-21 21:09] VITALS: BP 160/116
--- NOTE | 2024-02-21 21:17 | NUR ---
Call light answered, patient up to use BSC. States PRN ativan was helpful, symptoms lessened. Tachy up to 140 with exertion. Back to 90 at rest. Afebrile. States no needs at this time.
--- NOTE | 2024-02-21 21:30 | NUR ---
Discussed pt BP with Dr Durand, new orders for IV labetalol received and entered. Pt resting in bed with eyes closed. Sitter at bedside relieved at this time and this RN present for direct obs.
[2024-02-21] MEDS ORDERED: LABETALOL HCL 100 MG/20 ML MDV IV PRN (21:45)
[2024-02-21 22:00] VITALS: BP 140/110
--- NOTE | 2024-02-21 22:52 | NUR ---
Patient resting in bed with eyes closed, even and unlabored respirations noted, no needs identified. IVF infusing. Call light in reach.
[2024-02-21 23:00] VITALS: BP 162/103
--- NOTE | 2024-02-21 23:07 | NUR ---
Call light answered, patient up to BSC for void, 400ml out. Fresh soda and water provided per request. Patient calm and cooperative with all cares.
[2024-02-22] VITALS (14 sets, daily range): BP systolic 140–154; BP diastolic 98–119
--- NOTE | 2024-02-22 00:57 | NUR ---
Patient resting in bed with eyes closed, even and unlabored respirations. No needs identified at this time. IVF infusing per order. 1:1 direct obs sitter in room. Call light in reach.
--- NOTE | 2024-02-22 01:30 | NUR ---
Call light answered, patient up to BSC for void, 375 ml clear urine. CIWA currently 0. Patient states no needs at this time, back to bed. Call light in reach.
--- NOTE | 2024-02-22 02:30 | NUR ---
New bag IV fluid hung and infusing per order. Pt requests tylenol for 5/10 headache, denies other symptoms at this time, administered. No further needs at this time.
--- NOTE | 2024-02-22 04:05 | NUR ---
Patient up to use BSC. Endorses headache, tremors, auditory hallucinations, sweating. 2mg PRN ativan administered at this time.
--- NOTE | 2024-02-22 04:45 | NUR ---
This RN in room for assessment. Patient remains resting in bed with no needs, even and unlabored respirations. 1:1 sitter in room for direct obs.
[2024-02-22 05:21] LABS: BASOPHILS 0.3 % (0-2); EOSINOPHILS 0.1 % (0-6); HEMATOCRIT 36.8 % (35.0-50.0); HEMOGLOBIN 12.4 g/dL (12.0-18.0); MCH 28.1 (27-36); MCHC 33.7 g/dl (30-36); MCV 83.5 fl (81-99); MONOCYTES 6.4 % (0-12); NEUTROPHILS 70.2 % (39-80); PLATELET COUNT 140 K/uL (140-440); RDW 17.2 (10.5-15.0)
[2024-02-22 05:35] LABS: ALBUMIN 3.6 g/dL (3.4-5.0); ALBUMIN/GLOBULIN RATIO 1.16 (1.1-2.4); ANION GAP 14.1 (7-21); BILIRUBIN, TOTAL 0.5 ng/dL (0.2-1.0); BUN/CREATININE RATIO 4.4 (6.0-28.6); CALCIUM 8.9 mg/dL (8.5-10.1); CREATININE, SERUM 1.59 mg/dL (0.55-1.02); MAGNESIUM 1.7 mg/dL (1.8-2.4); PHOSPHORUS, INORGANIC 2.8 mg/dL (2.5-4.9); POTASSIUM 3.1 mmol/L (3.5-5.1); PROTEIN, TOTAL 6.7 g/dL (6.4-8.2)
--- NOTE | 2024-02-22 07:03 | NUR ---
Attempted to flush patient U/S guided IV in R upper arm and found to be not patent unless traction placed on IV, new dressing applied and attempted to resolve issue, IV pulls back blood and flushes but only if traction applied constantly. Reina MASSEY in room to start new U/S guided IV, successful. Pt tolerated well and IVF infusing into new L AC 20g. Upper arm R side IV removed WNL.
--- NOTE | 2024-02-22 07:51 | NUR ---
PATIENT ASLEEP AT THIS TIME AND APPEARS IN NO ACUTE DISTRESS. SITTER REMAINS IN ROOM WITH DIRECT OBS.
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
[2024-02-22] MEDS ORDERED: MAGNESIUM SULFATE 2 GM/50 ML BAG IV ONE (09:00)
[2024-02-22] MEDS ORDERED: POTASSIUM CHLORIDE 10 MEQ TABCR PO ONE (09:00)
--- NOTE | 2024-02-22 09:32 | NUR ---
PATIENT UP TO BSC TO VOID. PT ENDORSES FEELING MORE SHAKY THAN EARLIER AND VISIBLE TREMORS ARE MORE PRONOUNCE. PT GIVEN PRN ATIVAN FOR A CIWA OF 9. PATIENT ADVOCATE IN ROOM TO SPEAK WITH PATIENT. OTHERWISE PATIENT HAS BEEN CALM, COOPERATIVE, AND PLEASANT THIS AM. HR IN THE 70-80s CURRENTLY. WILL CONTINUE TO MONITOR.
--- NOTE | 2024-02-22 09:36 | NUR ---
PATIENT'S DAMIEN CALLED BACK [phone] AND GIVEN AN UPDATE. PT DID NOT WANT TO SPEAK TO HIM THIS AM BUT ASKED THAT I GIVE HIM AN UPDATE. HE STATED HE DECIDED NOT TO BRING IN HER KIDS AT THIS TIME BUT WOULD CHECK BACK IN ON THE PHONE TOMORROW.
--- NOTE | 2024-02-22 10:21 | NUR ---
[facility] HERE TO SEE PATIENT AND REVOKE HER MENTAL HEALTH HOLD, DUE TO HER NO LONGER BEING MEDICALLY CLEARED. [facility] WILL RETURN AND LIKELY PLACE HER ON A HOLD AGAIN AFTER SHE IS MEDICALLY CLEAR. CONTINUE TO MONITOR.
--- NOTE | 2024-02-22 10:56 | NUR ---
ATTEMPT TO SEE PATIENT. SLEEPING, SNORING. DOES NOT WAKE TO VOICE. STAFF STATE SHE HAD A DOSE OF ATIVAN THIS MORNING AND HAS BEEN SLEEPING OFF AND ON.
--- NOTE | 2024-02-22 11:32 | NUR ---
PATIENT SLEEPING AT THIS TIME AND APPEARS IN NAD. HR INTHE 100s NOW HOWEVER. IV CONTINUE AT 125 ML/HR. WILL CONTINUE TO MONITOR.
[2024-02-22] MEDS ORDERED: PHARMACY RENAL DOSE ADJUSTMENT 1 DOSE MISC PO SCH (12:00)
--- NOTE | 2024-02-22 12:10 | NUR ---
ASSESSMENT COMPLETE. CIWA IS 3 AT THIS TIME. PT AWAKENS TO VOICE BUT FALLS BACK ASLEEP FAIRLY QUICKLY. HR 100-109 RANGE AT THIS TIME. IVF CONTINUE AT 125 ML/HR. CONTINUE TO MONITOR.
[2024-02-22] MEDS ORDERED: LABETALOL HCL 20 MG/4 ML VIAL IV PRN (13:00)
[2024-02-22] MEDS ORDERED: HYDROXYZINE PAM25 MG PO (13:40)
[2024-02-22] MEDS ORDERED: CEPHALEXIN500 MG PO (13:45)
--- NOTE | 2024-02-22 14:25 | NUR ---
PATIENT CONTINUES TO REST AT THIS TIME. HR IN THE 90s. PT ATE MINIMAL OF HER LUNCH. SITTER REMAINS IN ROOM.
--- NOTE | 2024-02-22 14:40 | NUR ---
PATIENT RESTING IN BED. WAKES TO VOICE. VERIFIED DEMOGRAPHICS. DIAMOND STATES SHE IS "BASICALLY HOMELESS." STATES SHE HAS BEEN WORKING WITH [employer], NINA HAS BEEN ASSISTING HER. SHE HAS ALSO BEEN ASSIGNED A NEW COUNSELOR BUT CAN NOT REMEMBER HIS NAME. STATES SHE IS TRYING TO GET INTO [employer] BUT THERE IS A WAITING LIST. SHE HAS NOT LOOKED INTO [employer]. SHE STATES SHE RUNS OUT OF FOOD AND MEDICATIONS. ENCOURAGED TO LOOK INTO FOOD PANTRIES, ASK [employer] FOR HELP AND POTENTIALLY APPLY FOR [employer]NAP BENEF[employer] FOR FOOD STAMPS. SHE IS RECEPTIVE TO ALL INFORMATION AND IS REQUESTING MORE INFORMATION IF POSSIBLE. HAS NO DME, DRIVES SELF.
--- NOTE | 2024-02-22 15:06 | NUR ---
RESOURCES FOR HOUSING, FOOD AND UTILITY ASSISTANCE PROVIDED TO PATIENT. DENIES OTHER CM NEEDS AT THIS TIME.
--- NOTE | 2024-02-22 15:20 | NUR ---
SPO2 FINGER PROBE CHANGED AT THIS TIME. PATIENT PROVIDED APPLESAUCEW AND MANDARIN ORANGE PER PATIENT REQUEST. SITTER IS SITTING IN THE CHAIR IN THE ROOM. PATIENT STATED NO FURTHER NEEDS AT THIS TIME. CALL LIGHT AND PERSONAL BELONGINGS ARE WITHIN REACH.
--- NOTE | 2024-02-22 16:01 | NUR ---
1mg ATIVAN ADMINISTERED FOR CIWA SCORE OF 10. PREVIOUS DOSE OF 2MG KEPT PT OVERLY SEDATED, WILL ADMINISTER ADDITIONAL 1MG IF SCORE NOT IMPROVED. PT REPORTS SEEING "SOME KIND OF ORANGE ANIMAL CRAWLING UP THAT WALL EARLIER" AND HEARING VOICES. DENIES THAT VOICES ARE THREATENING OR TELLING HER TO HURT HERSELF OR OTHERS. 1:1 SITTER REMAINS IN ROOM.
--- NOTE | 2024-02-22 16:35 | NUR ---
PT USES CALL LIGHT TO REQUEST HELP TO BSC. STEADY ON FEET SBA BUT PT REPORTS FEELING WEAK. NO VISIBLE TREMOR, PT CALM AND APPRECIATIVE. VS STABLE ON MONITOR. CALL LIGHT IN REACH, 1:1 WIRELESS TEAM MEMBER IN ROOM.
--- NOTE | 2024-02-22 16:51 | NUR ---
AUNT AND COUSIN IN ROOM TO VISIT PT WITH PT APPROVAL. DOOR OPEN AND PT FIRE SUPPRESSION CAPTAIN IN ROOM.
--- NOTE | 2024-02-22 17:30 | NUR ---
FAMILY MEMBER IN ROOM TO VISIT WITH PT PERMISSION. VISITOR BROUGHT SOFT BLANKET AND FUZZY SOCKS. 1:1 SITTER REMAINS IN ROOM. PT SITTIN UP IN BED EATING DINNER.
[2024-02-22] MEDS ORDERED: FOLIC ACID 1 MG TAB PO SCH (18:19)
[2024-02-22] MEDS ORDERED: THIAMINE HCL 100 MG TAB PO SCH (18:20)
--- NOTE | 2024-02-22 18:21 | NUR ---
PT RESTING IN BED, DROWSY. STATES SHE IS NOT DONE WITH DINNER, EATEN ONLY HER FRESH FRUIT SO FAR. IV ALARM ADDRESSED.
--- NOTE | 2024-02-22 19:00 | NUR ---
2MG ATIVAN ADMINISTERED FOR CIWA SCORE OF 20. PT NOTED TO BE TACHICARDIC AND INCREASINGLY HYPERTENSIVE WHILE SLEEPING. WHEN UP TO USE COMMODE PT REPORTS INCREASE TACTILE "SKIN CRAWLING" AND CONTINUED VOICES AND VISIONS. PT REMAINS PLEASANT AND THANKFUL AND APPROPRIATE.
--- NOTE | 2024-02-22 19:30 | NUR ---
handoff report received from day shift RN. patient resting in bed, no acute distress noted. sitter remains at bedside. no needs at this time. call light in reach.
--- NOTE | 2024-02-22 20:30 | NUR ---
PATIENT STATES SHE FEELS NAUSEOUS. PRN ZOFRAN GIVEN PER EMAR. PATIENT CIWA SCORE OF 4, NO INTERVENTIONS AT THIS TIME. PATIENT UP TO BEDSIDE COMMODE, VOIDS 600CC OF CLEAR YELLOW URINE AND BACK TO BED. PATIENT IV SITE WNL, IVF INFUSING PER ORDER. PATIENT HEART RATE HIGH 130 WITH ACTIVITY. PATIENT HAS NO FURTHER NEEDS AT THIS TIME. 1:1 SITTER REMAINS AT BEDSIDE. CALL LIGHT WITHIN REACH.
--- NOTE | 2024-02-22 22:20 | NUR ---
PATIENT PROVIDED WITH ICE CHIPS PER REQUEST. PATIENT HAS NO FURTHER NEEDS AT THIS TIME. 1:1 SITTER REMAINS AT BEDSIDE. CALL LIGHT WITHIN REACH.
--- NOTE | 2024-02-22 23:03 | NUR ---
PATIENT UP TO BEDSIDE COMMODE, VOIDS 500CC, AND BACK TO BED. PATIENT HR UP TO 120'S WITH MOVEMENT. PATIENT PROVIDED WITH SNACK AND JUICE PER REQUEST. PATIENT DENIES HAVING HEADACHE OR NAUSEA. PATIENT HAS NO FURTHER NEEDS AT THIS TIME. SITTER REMAINS AT BEDSIDE. CALL LIGHT WITHIN REACH.
--- NOTE | 2024-02-22 23:52 | NUR ---
PRN TYLENOL GIVEN PER EMAR FOR HEADACHE. PATIENT STATES SHE IS UNABLE TO SLEEP AND REQUEST TRYING MELATONIN. PRN MELATONIN GIVEN PER EMAR. NO FURTHER NEEDS AT THIS TIME. SITTER REMAINS AT BEDSIDE FOR PATIENT SAFETY. CALL LIGHT WITHIN REACH.
[2024-02-23] VITALS (12 sets, daily range): BP systolic 131–159; BP diastolic 92–114
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
--- NOTE | 2024-02-23 02:09 | NUR ---
PATIENT UP TO BEDSIDE COMMODE, VOIDS 350CC, AND BACK TO BED. PATIENT DENIES ANY NAUSEA OR HEADACHE AT THIS TIME. 1:1 SITTER REMAINS AT BEDSIDE. NO FURTHER NEEDS AT THIS TIME. CALL LIGHT WITHIN REACH.
--- NOTE | 2024-02-23 03:35 | NUR ---
PATIENT CIWA SCORE OF 10. PRN ATIVAN GIVEN PER EMAR. PATIENT PROVIDED WITH ICE CHIPS. NO FURTHER NEEDS AT THIS TIME. 1:1 SITTER REMAINS AT BEDSIDE FOR SAFETY. CALL LIGHT WITHIN REACH.
--- NOTE | 2024-02-23 05:10 | NUR ---
PATIENT UP TO BEDSIDE COMMODE, VOIDS AND BACK TO BED. PATIENT HAS NO FURTHER NEEDS AT THIS TIME. 1:1 SITTER AT BEDSIDE. CALL LIGHT WITHIIN REACH.
[2024-02-23 05:18] LABS: BASOPHILS 0.4 % (0-2); EOSINOPHILS 0.8 % (0-6); HEMATOCRIT 36.1 % (35.0-50.0); HEMOGLOBIN 12.3 g/dL (12.0-18.0); LYMPHOCYTES 20.2 % (24-44); MCH 28.3 (27-36); MCHC 33.9 g/dl (30-36); MCV 83.4 fl (81-99); MONOCYTES 5.8 % (0-12); NEUTROPHILS 72.8 % (39-80); PLATELET COUNT 138 K/uL (140-440); RBC 4.33 M/ul (4.3-5.7); RDW 16.6 (10.5-15.0)
[2024-02-23 05:34] LABS: ALBUMIN 3.4 g/dL (3.4-5.0); ALBUMIN/GLOBULIN RATIO 1.1 (1.1-2.4); ANION GAP 12.2 (7-21); BILIRUBIN, TOTAL 0.6 ng/dL (0.2-1.0); BUN/CREATININE RATIO 5.4 (6.0-28.6); CREATININE, SERUM 1.11 mg/dL (0.55-1.02); MAGNESIUM 1.9 mg/dL (1.8-2.4); PHOSPHORUS, INORGANIC 2.7 mg/dL (2.5-4.9); POTASSIUM 3.2 mmol/L (3.5-5.1); PROTEIN, TOTAL 6.5 g/dL (6.4-8.2)
--- NOTE | 2024-02-23 06:20 | NUR ---
PATIENT RESTING IN BED WITH EYES CLOSED, RR 25. NO NEEDS AT THIS TIME. 1:1 SITTER REMAINS AT BEDSIDE. CALL LIGHT WITHIN REACH.
--- NOTE | 2024-02-23 07:38 | NUR ---
SHIFT REPORT FROM SENTHIL MASSEY, ROUNDED ON PATIENT SHE IS SLEEPING AT THIS TIME, WILL ALLOW TO SLEEP FOR NOW PER REPORT SHE HAS NOT BEEN ABLE TO SLEEP WELL OVERNIGHT. PATIENT IS ON FULL CCU MONITOR, VITAL SIGNS ARE STABLE. NO DISTRESS NOTED ON VISUAL OF PATIENT.
[2024-02-23] MEDS ORDERED: POTASSIUM CHLORIDE 10 MEQ TABCR PO ONE (09:00)
--- NOTE | 2024-02-23 09:08 | NUR ---
PATIENT ALERT AND ORIENTED TO RN AT BEDSIDE, SHE REPORTS MILD HALLUCINATIONS AUDITORY AND VISUAL INTERMITTENLY, MILD NAUSEA, AND HEADACHE 6/10, PATIENT SCORED 7 ON CIWA.
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
--- NOTE | 2024-02-23 09:23 | NUR ---
PATIENT ALERT TO RN AT BEDSIDE, TYLENOL PRN ADMINISTERED FOR MURILLO 07/17, PATIENT CONSUMED 25% OF BREAKFAST. PROVIDED PATIENT WITH CLEAR SCOTT ENSURE. FRESH ICE WATER AND CUP OF ICE PER HER REQUEST. SHE REMAINS 1:1 WITH SITTER AT BEDSIDE FOR SI IDEATIONS. PATIENT HAS CONTINUED TO SCORE 7 ON CIWA THIS SHIFT WHILE AWAKE, SHE IS ALERT TO NAME, THEN WHEN NOT ENGAGED SHE FALLS BACK TO SLEEP. V/S STABLE, AFEBRILE, NO DISTRESS NOTED.
--- NOTE | 2024-02-23 09:30 | NUR ---
PATIENT UP TO BEDSIDE COMMODE WITH LINE MANAGEMENT, SHE IS STEADY TO TRANSFER SELF TO COMMODE AND BACK TO BED, VOIDED 700ML.
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
--- NOTE | 2024-02-23 10:15 | NUR ---
PATIENT CIWA ASSESSMENT 14 AT THIS TIME, ATIVAN PRN ADMINISTERED. PATIENT ALERT AND ORIENTED, RESTLESS, AGITATED.
[2024-02-23] MEDS ORDERED: CHLORDIAZEPOXIDE 25 MG CAP PO SCH (10:36)
--- NOTE | 2024-02-23 11:00 | NUR ---
INTO SEE PATIENT. PATIENT ALERT LAYING IN BED. PATIENT DISCUSSED KAZ AND POLA FROM [facility] IN YESTERDAY. THEY ARE WORKING ON PLACING HER IN A DRUG AND ALCOHOL/MENTAL HEALTH FACILITY. EDUCATED PATIENT ON RESOURCES FOR AFTER INPATIENT STAY. PAMPHLET ON BEDSIDE TABLE WITH INFORMATION ABOUT, [employer], [employer], AND UTILITY/FOOD ASSISTANCE. DENIES ANY OTHER CM NEEDS AT THIS TIME. WILL CONTINUE TO FOLLOW.
--- NOTE | 2024-02-23 11:17 | NUR ---
THIS RN SAT AT BEDSIDE TO PROVIDE EDUCATION ON ADDICTION AND TREATMENT PLANS/OPTIONS, PLAN OF CARE FOR PATIENT AT THIS TIME. DISCUSSED WITH PATIENT HER RESTRICTIONS FOR PATIENT VISITS, SHE DOES NOT WANT HER DAMIEN TO VISIT IN ROOM, SHE WOULD LIKE HER KIDS TO VISIT IF POSSIBLE. SHE VERBALIZED INTEREST IN RECOVERY TREATMENT. SHE VERBLAIZED SHE DOES FEEL UNSAFE AND A HARM TO HERSELF IF SHE WAS NOT IN HOSPITAL, SHE SAID SHE WOULD NOTIFY STAFF BEFORE TAKING ACTIONS TO HARM SELF IN HOSPITAL SETTING. PATIENT HAS 1:1 SITTER AT BEDSIDE TO MONITOR FOR ANY BEHAVIOR OF SELF HARM.
--- NOTE | 2024-02-23 11:39 | NUR ---
BING ESCALONA IN ROOM TO VISIT WITH PATIENT.
--- NOTE | 2024-02-23 11:59 | NUR ---
ADA WILLIS INTO SEE PATIENT PER HER REQUEST TO OUR SPIRITUAL CARE STAFF. SHE IS NOW UP TO BEDSIDE COMMODE VOIDED 650ML. SHE REPORTS HAS NO INTENTION OF HARMING HERSELF AT THIS TIME. 1:1 SITTER AT BEDSIDE, PATIENT ASKED FOR ANOTHER PILLOW WHICH IS PROVIDED. SHE HAS NO OTHER REQUESTS OR CONCERNS AT THIS TIME.
[2024-02-23] MEDS ORDERED: CHLORDIAZEPOXIDE 25 MG CAP ONE (12:41)
--- NOTE | 2024-02-23 13:53 | NUR ---
PATIENT PROVIDED TOOTH PASTE AND TOOTH BRUSH, HAIR BRUSH WITH THIS RN SUPERVISING ADLS, THEN TOOK ALL ITEMS FROM PATIENT AFTER CARES COMPLETED, 1:1 SITTER AT BESIDE AT ALL TIMES FOR SI PROCAUTION. PATIENT REQUESTED MORE FRUIT FOR DINNER MEAL, PATIENT UP TO BEDSIDE COMMODE VOIDED 650ML URINE. PATIENT HAS NO FURTHER REQUESTS, CIWA 6.
--- NOTE | 2024-02-23 14:45 | NUR ---
PATIENT AGREED TO ATTEMPT TO AMBULARE IN ROOM, PATIENT AMBULATED IN ROOM THREE TIMES. SHE HAS UNSTEADY GAIT NEEDS 1 PERSON CLOSE ASSIST. AT ONE POINT SHE CLOSED HER EYES AND LOST BALANCE, STEADIED BY THIS RN. SHE THEN WALKED ONE MORE LAP AND BACK TO BED.
--- NOTE | 2024-02-23 15:23 | NUR ---
PATIENT CIWA 16, ATIVAN PRN ADMINISTERED. PATIENT IS NOTED TO HAVE IMPROVED APPETITE. REPORTS MURILLO 07/17, TYLENOL PRN ADMINISTERED. 1500 SNACK TRAY PROVIDED FROM [employer]. PATIENT HAS NO OTHER CONCERNS.
--- NOTE | 2024-02-23 16:33 | NUR ---
PATIENT ASSISTED WITH BED BATH, UP TO BEDSIDE COMMODE. NEW PAPER SCRUBS PROVIDED. PATIENT REPORTS NO OTHER CONCERNS OR REQUESTS AT THIS TIME, SHE IS ALERT AND ORIENTED [facility] 4
--- NOTE | 2024-02-23 17:00 | NUR ---
PATIENT CALLED NURSES STATION TO REQUEST ASSISTANCE TO BEDSIDE COMMODE, VOIDED 500ML STRAW COLOR URINE. DINNER TRAY SET UP.
--- NOTE | 2024-02-23 17:38 | NUR ---
PATIENT INITIALLY DID NOT WANT HER SPOUSE DAMIEN IN HER ROOM, HE ARRIVED WITH DAUGHTER, THIS RN STOPPED HIM AT DOOR TO CHECK AGAIN WITH PATIENT, SHE SAID THAT SHE WOULD LIKE HER DAUGHTER TO COME IN BUT NOT DAMIEN. THEN SHE CHANGED HER MIND AND ASKED FOR DAMIEN TO COME IN SO SHE COULD UPDATE HIM HERSELF ON NEW UPDATES FROM [facility] VISIT TODAY. DAMIEN WAS IN ROOM FOR 15MIN, THIS RN INTO ROOM TO ROUND AND CHECK ON PATIENT EMOTION STATE WITH VISIT, SHE IS NOTED TO BE CRYING, PATIENT SAID WITH THIS RN AT BEDSIDE, "I THINK I NEED TO BE DONE NOW, DRIVE HOME SAFE." THIS WAS SAID TO HER SPOUSE. SPOUSE AND DAUGHTER LEFT.
[2024-02-23] MEDS ORDERED: hydrOXYzine pamoate 50 MG CAP PO PRN (18:00)
[2024-02-23] MEDS ORDERED: TRAZODONE HCL 50 MG TAB PO PRN (18:00)
--- NOTE | 2024-02-23 18:00 | NUR ---
CALLED TO UPDATE ON DAYS EVENTS, PATIENT DID NOT SLEEP WELL LAST NIGHT HAS HAD SIGNIFICANT AXIETY WITH VISITORS. SHE HAS NEEDED PRN FOR CIWA TWICE TODAY, URINE OUT 3150ML TODAY. UPDATED TO [facility] VISIT TODAY.
--- NOTE | 2024-02-23 18:12 | NUR ---
IN TO TALK WITH PATIENT ABOUT NEW MEDICATION ORDER TO ASSIST WITH SLEEP AND ANXIETY. PATIENT SAID, "OH GOOD, THANK YOU."
--- NOTE | 2024-02-23 19:44 | NUR ---
REPORT RECEIVED FROM BRYSON MARINELLI. PATIENT RESTING IN BED WITH SISTER AT BEDSIDE. 1:1 SITTER IN ROOM. PATIENT DENIES NEEDS AT THIS TIME.
--- NOTE | 2024-02-23 20:20 | NUR ---
PATIENT UP TO BR TO VOID 100ML CLEAR LIGHT YELLOW URINE. BACK TO BED, PATIENT BECOMES TEARFUL DURING ASSESSMENT AND REPORTS ANXIETY. VS CHARTED. PATIENT ENDORSED THOUGHTS OF SELF HARM WITH CORD IN ROOM EARLIER IN THE DAY BUT DENIES THOUGHTS RIGHT NOW. REPORTS HER "BROTHER" IS TELLING HER "DARK THINGS IN MY HEAD". PATIENT AGREES TO REPORT ANY ESCALATED THOUGHTS OF SELF HARM. TELEMETRY REMOVED PER ORDER. REMAINS ON SPO2 MONITORING ONLY. ALL OTHER CORDS REMOVED FROM CLOSE PROXIMITY TO PATIENT. 1:1 SITTER FOR PATIENT SAFETY AT BEDSIDE.
[2024-02-23] MEDS ORDERED: QUETIAPINE FUMARATE 25 MG TAB PO SCH (21:00)
[2024-02-23] MEDS ORDERED: GABAPENTIN 300 MG CAP PO SCH (21:00)
--- NOTE | 2024-02-23 21:10 | NUR ---
PATIENT UP TO BR TO VOID. PASSING LOTS OF FLATUS. BACK TO BED. TOOK HS MEDICATIONS WITHOUT DIFFUCULTY. MEDICATED WITH ATIVAN PER EMAR FOR CIWA OF 10. REVIEWED POC FOR THE SHIFT WITH PATIENT. SHE EXPRESSES DESIRE TO SLEEP. WILL PROMOTE RESTFUL ENVIRONMENT. EXPLAINED TO PATIENT THAT THIS RN WILL FREQUENTLY ROUND BUT WILL ALLOW FOR REST AND GROUP CARES ABLE. VERBALIZED UNDERSTANDING. 1:1 SITTER REMAINS AT BEDSIDE.
--- NOTE | 2024-02-23 21:49 | NUR ---
PATIENT RESTING IN BED WITH EYES CLOSED. RESPIRATIONS EVEN AND UNLABORED. PATIENT REPOSITIONS HERSELF INDEPENDENTLY IN BED. CALL LIGHT IN REACH.
--- NOTE | 2024-02-23 22:05 | NUR ---
THIS RN IN ROOM GIVING 1:1 SITTER A BREAK. PATIENT REPORTS FEELING LESS ANXIOUS AND HEADACHE IMPROVING. REPORTS DESIRE TO GET GOOD SLEEP. ENCOURAGED PATIENT TO CONTINUE TO REST.
--- NOTE | 2024-02-23 22:43 | NUR ---
PATIENT USES CALL LIGHT TO REQUEST JUICE AND CRACKERS. BOTH PROVIDED. DENIES OTHER NEEDS AT THIS TIME. CALL LIGHT IN REACH. 1:1 SITTER REMAINS IN ROOM FOR PATIENT SAFETY.
--- NOTE | 2024-02-23 23:23 | NUR ---
PATIENT USES CALL LIGHT TO REQUEST ASSISTANCE TO BATHROOM TO VOID. BACK TO BED. DENIES OTHER NEEDS AT THIS TIME. CALL LIGHT IN REACH. 1:1 SITTER IN ROOM FOR PATIENT SAFETY.
--- NOTE | 2024-02-24 00:04 | NUR ---
PATIENT RESTING WITH EYES CLOSED. RESPIRATIONS EVEN AND UNLABORED. CALL LIGHT IN REACH. 1:1 SITTER IN ROOM FOR SAFETY.
[2024-02-24 00:09] VITALS: BP 137/92
--- NOTE | 2024-02-24 00:21 | NUR ---
PATIENT WAKES AND ASKS FOR MORE CRACKERS, PROVIDED TO PATIENT. C/O HEADACHE. CIWA SCORES AT 7. PATIENT MEDICATED WITH TYLENOL PER EMAR. VS CHARTED. DENIES OTHER NEEDS OR CONCERNS AT THIS TIME. CALL LIGHT IN REACH. 1:1 SITTER IN ROOM FOR PATIENT SAFETY.
--- NOTE | 2024-02-24 01:31 | NUR ---
PATIENT RESTING IN BED WITH EYES CLOSED. 1:1 SITTER REMAINS IN ROOM FOR PATIENT SAFETY.
--- NOTE | 2024-02-24 02:41 | NUR ---
THIS RN IN ROOM 1:1 FOR SITTER LUNCH BREAK. PATIENT RESTING WITH EYES CLOSED. APPEARS RELAXED, RESPIRATIONS EVEN AND UNLABORED. CALL LIGHT IN REACH.
--- NOTE | 2024-02-24 03:42 | NUR ---
PATIENT CONTINUES TO REST IN BED WITH EYES CLOSES. 1:1 SITTER REMAINS IN ROOM.
[2024-02-24 04:50] VITALS: BP 149/115
--- NOTE | 2024-02-24 05:01 | NUR ---
PATIENT WAKES TO THIS RN IN ROOM. VS CHARTED. CIWA SCORE 4. PATIENT DENIES CURRENT INTENT TO SELF HARM BUT DOES REPORT SHE IS HEARING A MALE VOICE TELLING HER TO "DO BAD THINGS". WHEN ASKED TO CLARIFY, PATIENT DID NOT ELABORATE RATHER ASKED FOR MORE JUICE AND ICE, BOTH PROVIDED. 1:1 SITTER REMAINS IN ROOM FOR PATIENT SAFETY.
[2024-02-24 05:39] LABS: ANION GAP 7.3 (7-21); BUN/CREATININE RATIO 9.75 (6.0-28.6); CALCIUM 9.3 mg/dL (8.5-10.1); CREATININE, SERUM 0.82 mg/dL (0.55-1.02); MAGNESIUM 1.9 mg/dL (1.8-2.4); POTASSIUM 3.3 mmol/L (3.5-5.1)
[2024-02-24 05:56] LABS: PHOSPHORUS, INORGANIC 2.8 mg/dL (2.5-4.9)
--- NOTE | 2024-02-24 07:34 | NUR ---
PT IN BED WAS TALKING ON THE PHONE ASKING FOR THEM TO COME AND GET HER TO TAKE HER HOME. THEN PT STARTED PULLING AT HER IV AND WAS ASKED TO STOP. PT LISTENED AND IV SITE WAS WRAPED WITH COBAN TO PROTECT LINE. PT IS IN PAPER GROWN AT THIS TIME. 1:1 SITTER PRESENT AND IS AN RN.
[2024-02-24 07:56] VITALS: BP 138/103
[2024-02-24] MEDS ORDERED: POTASSIUM CHLORIDE 10 MEQ TABCR PO ONE (09:00)
[2024-02-24] MEDS ORDERED: CHLORDIAZEPOXIDE 25 MG CAP PO ONE (09:00)
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
--- NOTE | 2024-02-24 10:12 | EKG ---
[facility] [address] [place] [id number] Signed Sinus tachycardia Otherwise normal ECG When compared with ECG of 18-FEB-2024 17:33, No significant change was found Confirmed by Galilea Swanson DO ([id number]) on 02/24/2024 10:12:05 AM Electronically Signed By: GALILEA SWANSON DO 02/24/24 1012 PATIENT NAME: JOEL SANTACRUZ Electrocardiogram DATE OF : 81 PHYSICIAN: GALILEA SWANSON DO REPORT #: [id number] REPORT IS CONFIDENTIAL AND NOT TO BE RELEASED WITHOUT AUTHORIZATION
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
[2024-02-24 11:42] VITALS: BP 173/111
--- NOTE | 2024-02-24 11:44 | NUR ---
PT ASKED ON A SCALE OF 0-10 FOR SELF HARM AND SHE RATE IT IS AN 8/10 AT THIS TIME, SHE IS TEARFULLY AND SHAKING WHEN TALKING ABOUT PLACEMENT IN A HOTEL IN [place], ASKING QUESTIONS ABOUT FAMILY PLACEMENT, BUT THAT IS NOT POSSIBLE PER PT. CRYSTAL CALLED BING PEREZ TO COME AND SEE PT ALSO THIS AFTERNOON. PT MEDICATED WITH VISTARIL 50MG PO AT THIS TIME. 1:1 SITTER IS IN THE ROOM. PT HAS BEEN UP TO THE BATHROOM AND BACK TO BED.
--- NOTE | 2024-02-24 12:18 | NUR ---
PT FAMILY INTO VISIT AT THIS TIME, ALSO ASSET PROTECTION ASSOCIATE POLA READ INTO SEE PT. 1:1 SITTER IS REMAIN IN THE ROOM.
--- NOTE | 2024-02-24 12:59 | NUR ---
FIRER POWERHOUSE WILL PLACE PT ON A HOLD AT THIS TIME. NOTIFIED. 1:1 SITTER ALSO IN ROOM AT THIS TIME.
--- NOTE | 2024-02-24 13:58 | NUR ---
pt appears to be sleepig family has left and and 1:1 siter in room. THIS PUPPET DEVELOPER TOOK OVER AND SAT WITH PT. SHE APPEARS TO BE SLEEPING RESP RATE EVEN AND UNLABORED AT THIS TIME. PT DID NOT OPEN EYES WHEN 1:1 SITTER LEFT ROOM AND NEW SITTER PRESENT.
--- NOTE | 2024-02-24 15:25 | NUR ---
PT C/O NAUSEA AT HIS TIME ZOFRAN SLOW IVP GIVEN AT THIS TIME. PT STATES "I THINK I ATE TOO MUCH" THEN ROLLED OVER AND WENT BACK TO SLEEP. SHE WAS UP TO THE BATHROOM VOIDED ALSO. SHE DID HAVE A BM EARLY TODAY.
[2024-02-24 18:52] VITALS: BP 143/108
--- NOTE | 2024-02-24 19:01 | NUR ---
PT REMAINS ON A 1:1 WITH A SITTER AT THE BEDSIDE. SHE HAS BEEN EATTING FRUIT AND DRINKING SODA, LIKES ICE AND DID GET SOME SLEEP THIS AFTERNOON. STILL HAS SOME ABD PAIN AT TIMES, BUT NO VOMETING AT THIS TIME.
--- NOTE | 2024-02-24 20:30 | NUR ---
PATIENT RESTING IN BED, SHE REPORTS SHE FEELS SAFE AT THIS TIME, SHE REPORTS SHE DOES NOT HAVE ANY INTENT TO SELF HARM AT THIS TIME. SHE REPORTS MILD NAUSEA AND WANTING TO HAVE SLEEP MEDICATIONS SOON POSSIBLE. DISCUSSED OUR PLAN OF CARE. PATIENT SAID HER AUNT WAS MAYBE GOING TO TAKE HER HOME AND WENT HOME TO CLEAN HER HOUSE OF ALCOHOL, THIS RN DISCUSSED WITH PATIENT THAT SHE IS NOW ON AN OFFICIAL HOLD, THAT MEANS SHE WILL REMIAIN IN THE HOSPITAL UNTIL [facility] IS ABLE TO PLACE HER IN TREATMENT FACILITY. PATIENT SAID, "OH, I KNOW." PATIENT VERBALIZED UNDERSTANDING. SHE INDICATED THAT THIS IS FOR AFTER TREATMENT MAYBE. SHE VERBALIZED THAT SHE AND HER DAMIEN HAS AGREED TO KEEP A DISTANCE FOR NOW, BUT THAT HE IS STILL NOT WANTED FOR PHYSICAL VISITS.
[2024-02-24 20:57] VITALS: BP 155/107
--- NOTE | 2024-02-25 00:21 | NUR ---
PATIENT WAKES TO TOUCH AND FOLLOWS WRITTEN INSTRUCTIONS FOR ASSESSMENT. FOLLOWS COMMANDS. IVF INFUSING WITHOUT DIFFICULTY. PATIENT DENIES NEEDS. CALL LIGHT IN REACH, BED EXIT ALARM ON. PATIENT REMAINS IN VIEW FROM NURSE'S STATION.
--- NOTE | 2024-02-25 00:46 | NUR ---
PATIENT RESTING QUIELTY IN BED, EYES CLOSED, NO DISTRESS NOTED RESPIRATORY RATE 16/MIN
--- NOTE | 2024-02-25 02:32 | NUR ---
PATIENT RESTING IN BED EYES CLOSED RESPIRATORY RATE 16/MIN, 1:1 SITTER AT BEDSIDE AT ALL TIMES. NO DISTRESS NOTED ON VISUAL ROUNDING.
--- NOTE | 2024-02-25 03:52 | NUR ---
PATIENT RESTING QUIELTY IN BED EYES CLOSED RESPIRATIONS 14/MIN SHALLOW. PER 1:1 PATIENT SITTER PATIENT INTERMITTENLY WAKES TO SNACK ON CANDY THEN BACK TO SLEEP.
[2024-02-25 05:26] LABS: BASOPHILS 0.3 % (0-2); HEMATOCRIT 40.1 % (35.0-50.0); HEMOGLOBIN 13.5 g/dL (12.0-18.0); LYMPHOCYTES 15.6 % (24-44); MCH 28.5 (27-36); MCHC 33.8 g/dl (30-36); MCV 84.2 fl (81-99); MONOCYTES 7.2 % (0-12); NEUTROPHILS 73.9 % (39-80); PLATELET COUNT 189 K/uL (140-440); RBC 4.76 M/ul (4.3-5.7); RDW 17.3 (10.5-15.0)
[2024-02-25 05:43] LABS: ANION GAP 15.1 (7-21); CALCIUM 9.2 mg/dL (8.5-10.1); MAGNESIUM 1.9 mg/dL (1.8-2.4); PHOSPHORUS, INORGANIC 2.7 mg/dL (2.5-4.9); POTASSIUM 4.1 mmol/L (3.5-5.1)
--- NOTE | 2024-02-25 05:52 | NUR ---
PATIENT CONSUMED CHICKEN NOODLE SOUP WITH THIS RN AT BEDSIDE. SHE REPORTS FEELING ANXIOUS DUE TO UPDATE OF CARE PLAN AND REMOVING OF FURTHER MEDICAL EQUIPMENT AND BELONGINGS FORM ROOM. VISTRIL PRN FOR ANXIETY PROVIDED.
[2024-02-25 05:54] VITALS: BP 145/104
--- NOTE | 2024-02-25 07:57 | NUR ---
PATIENT AWAKE AND RESTING IN BED. PATIENT'S AUNT ARRIVES AND IS VISITING WITH HER IN ROOM AT THIS TIME. EXPLAINED THAT NO OUTSIDE FOOD IS TECHNICALLY ALLOWED AND WE WOULD NOT BE ALLOWING HER TO HAVE FURTHER OUTSIDE FOOD AT THIS TIME. PATIENT EATS MINIMAL AMOUNTS OF FOOD. PT ENDORSES NOT BEING ABLE TO HAVE A BM SINCE SHE HAS BEEN HERE AND THAT HER ABDOMEN IS HURTING A LITTLE. WILL ORDER SOME STOOL SOFTENERS FOR HER.
[2024-02-25] MEDS ORDERED: CHLORDIAZEPOXIDE 25 MG CAP PO ONE (09:00)
[2024-02-25] MEDS ORDERED: POLYETHYLENE GLYCOL 3350 1 PACKET PO SCH (09:00)
[2024-02-25] MEDS ORDERED: SENNOSIDES/DOCUSATE 1 EA TAB PO SCH (09:00)
[2024-02-25] MEDS ORDERED: ENOXAPARIN SODIUM 40 MG/0.4 ML SYR SUB-Q SCH (09:00)
[2024-02-25 09:22] VITALS: BP 164/115
--- NOTE | 2024-02-25 09:37 | NUR ---
DR. TAYLOR IN ROOM TO SEE PATIENT AND PLAN OF CARE BEING DISCUSSED. PT TO BE STARTED ON HIGH BLOOD PRESSURE MEDICATIONS. PT DENIES ANY SUICIDAL IDEATION AT THIS TIME.
[2024-02-25] MEDS ORDERED: AMLODIPINE BESYLATE 5 MG TAB PO SCH (09:45)
[2024-02-25 09:50] VITALS: BP 163/116
--- NOTE | 2024-02-25 09:53 | NUR ---
PATIENT JOEL NÚÑEZ IS RESTING COMFORTABLY IN BED WATCHING TELEVISION. SCHEDULED MEDICATION AND ICE CHIPS PROVIDED. SAFETY ATTENDENT IN ROOM. SAFETY CHECK PERFORMED. NO OTHER NEEDS IDENTIFIED AT THIS TIME
--- NOTE | 2024-02-25 11:48 | NUR ---
CCS COUNSELOR IN ROOM VISITING WITH PATIENT AT THIS TIME. PATIENT ENDORSES NAUSEA AND GIVEN MEDICATION PRN FOR THIS.
--- NOTE | 2024-02-25 15:34 | NUR ---
PATIENT'S AND HER CHILD HAVE ARRIVED AND ARE VISITING WITH HER AT THIS TIME. PT IS CALM, AND STATES IT IS OKAY FOR THEM TO COME SEE HER AT THIS TIME. PT GIVEN AFTERNOON SNACK AND APPRECIATIVE OF THAT.
[2024-02-25 16:25] VITALS: BP 161/116
[2024-02-25] MEDS ORDERED: LIDOCAINE HCL 4% 1 EACH PATCH TD SCH (18:26)
[2024-02-25 19:52] VITALS: BP 128/101
--- NOTE | 2024-02-25 20:09 | NUR ---
REPORT RECEIVED FROM BRYSON NEWBERRY. CARE PLAN REVIEWED WITH PATIENT, SHE IS AGREEABLE AND SIGNED CARE PLAN. DENIED QUESTIONS. PATIENT HAD STEPPED INTO THE HALLWAY TO LOOK IN HER BAG FOR CANDY. RE-EDUCATED PATIENT THAT SHE MAY NOT COME OUT OF HER ROOM WITHOUT STAFF AND MAY NO GO THROUGH HER BELONGINGS. PATIENT VERBALIZED UNDERSTANDING. PATIENT IS AOX4 TONIGHT. DENIES THOUGHTS OF SELF HARM OR SI. DENIES HALLUCINATIONS OR VOICES. REPORTS SHE HAD A BM TODAY AND DECLINED HS BOWEL REGIME MEDICATIONS. 1:1 SITTER IN ROOM FOR SAFETY.
--- NOTE | 2024-02-25 21:47 | NUR ---
PATIENT RESTING IN BED WITH EYES CLOSED. APPEARS RELAXED, RESPIRATIONS EVEN AND UNLABORED. 1:1 SITTER REMAINS IN ROOM FOR SAFETY.
--- NOTE | 2024-02-25 23:47 | NUR ---
PATIENT RESTING IN BED WITH EYES CLOSED. APPEARS CALM AND RELAXED. RESPIRATIONS EVEN AND UNLABORED. RR 16. 1:1 SITTER AT BEDSIDE.
[2024-02-26] VITALS (7 sets, daily range): BP systolic 126–154; BP diastolic 98–114
--- NOTE | 2024-02-26 02:31 | NUR ---
ROUNDING FINDS PATIENT AWAKE. SHE C/O HEADACHE AND NAUSEA. MEDICATED PER EMAR FOR BOTH. VS CHARTED. OOBTBR TO VOID. PATIENT DENIES ANY THOUGHTS OF SELF HARM OR SI. BACK TO BED TO REST, DENIES OTHER NEEDS. FRESH ICE WATER PROVIDED. SECURITY IN ROOM FOR 1:1 OBSERVATION FOR SAFETY.
--- NOTE | 2024-02-26 03:54 | NUR ---
PATIENT REPORTS SHE IS UNABLE TO SLEEP. REFERS TO CARE PLAN SHE AGREED ON AND ASKED IF SHE CAN START HER DAY EARLY. REPORTED WE WILL KEEP MORNING ADLS ON A NORMAL SCHEDULE BUT WILL ALLOW FOR TELEVISION WATCHING.
--- NOTE | 2024-02-26 06:13 | NUR ---
PATIENT REQUESTS TO BRUSH HER HAIR AND TEETH. ALLOWED FOR BOTH AND MONITORED BY THIS RN DURING ADL ACTIVITY. SECURITY AT BEDSIDE PROVIDING 1:1 FOR SAFETY.
--- NOTE | 2024-02-26 07:20 | NUR ---
REPORT RECEIVED FROM REEL WINDER RN. PATIENT IN BED AWAKE. SECURITY IN ROOM FOR PATIENT SAFETY.
--- NOTE | 2024-02-26 08:00 | NUR ---
THIS RN SPOKE WITH CLAIM TAKER AND DISCUSSED HOSPITAL POLICY FOR PATIENT'S PERSONAL BELONGINGS. RN ENTERED ROOM WITH STUDENT NURSE AND SECURITY AT BEDSIDE. RN EDUCATED PATIENT ON HOSPITAL POLICY AND REQUESTED THAT HER PERSONAL BELONGINGS BE OBTAINED BY THIS RN. PATIENT GAVE THIS RN HER PERSONAL BELONGING WITH NO DIFFICULTIES. PATIENT DOES APPEAR AGITATED "SHE HAD HER PERSONAL BELONGINGS AND NOW SHE MUST GIVE THEM BACK BUT WHATEVER." BELONGINGS OBTAINED INCLUDE CELL PHONE, BLANKET, SLIPPER SOCKS, AND 2 BOOKS. BELONGINGS PLACED IN PERSONAL BELONGINGS BAG OUTSIDE OF ROOM.
--- NOTE | 2024-02-26 08:50 | NUR ---
PATIENT GIVEN SCHEDULED MEDICATIONS. VSS. REPORTS HEADACHE CONTINUES PATIENT GIVEN PRN FOR HEADACHE. DENIES ANY FURTHER NEEDS AT THIS TIME. SECURITY STAFF AT BEDSIDE FOR SAFETY.
[2024-02-26] MEDS ORDERED: LIDOCAINE PATCH REMOVAL 1 EA TD ONE (09:00)
--- NOTE | 2024-02-26 10:00 | NUR ---
PATIENT GIVEN HOSPITAL ROOM PHONE FOR INCOMMING PHONE CALL. SECURITY REMAINS AT BEDSIDE FOR SAFETY.
--- NOTE | 2024-02-26 14:04 | NUR ---
PATIENT RESTING IN BED WATCHING TV. SECURITY PERSONNEL REMAINS IN ROOM. PATIENT IS PLEASANT. VITAL SIGNS DOCUMENTED. CALL LIGHT BUTTON ON BED ACCESSIBLE TO PATIENT. NO FURTHER NEEDS AT THIS TIME.
--- NOTE | 2024-02-26 14:10 | NUR ---
CCS STAFF ARRIVED AND IS AT BEDSIDE.
--- NOTE | 2024-02-26 14:37 | NUR ---
CCS STAFF REPORTS TO THE RN THAT IN PATIENT PSYCH HOSPITALIZATION WAS DISCUSSED WITH PATIENT. PATIENT WITH INCREASED ANXIETY DURING DISCUSSION AND REPORTED TO [facility]CS STAFF THAT SHE WOULD FEEL MORE COMFORTABLE TO DISCUSS THIS WITH HER AUNT AND AROUND. PATIENT WORKING WITH SECURITY STAFF TO OBTAIN AUNTS PHONE NUMBER FROM HER PERSONAL CELL PHONE THEN CELL PHONE WILL BE PLACED BACK WITH PATIENT'S PERSONAL BELONGINGS. CCS STAFF REPORTS THAT PATIENT DENIES ANY SUICIDAL IDATIONS AND HAS FOR THE LAST 2 DAYS, THAT IF PATIENT CONTINUES TO DENY SUICIDAL IDATIONS SHE MAY BE ABLE TO GO STRAIGHT TO A DUAL DIAGNOSIS TREATMENT PROGRAM.
--- NOTE | 2024-02-26 15:30 | NUR ---
PATIENT RESTING IN BED. DENIED ANY NEEDS AT THIS TIME. CALL LIGHT WIHTIN REACH. SECURITY STAFF AT BEDSIDE.
--- NOTE | 2024-02-26 16:31 | NUR ---
THIS STUDENT NURSE IN PATIENT ROOM WITH PRIMARY RN JOSE MANUEL WORKMAN. PATIENT REPORTS HEADACHE. PAIN LEVEL IS 5/10. MAR REVIEWED. 600 MG TYLENOL ADMINISTERED. PATIENT AMBULATED TO BATHROOM TO VOID AND BACK TO BED. HOSPITAL SECURITY STAFF REMAINS IN ROOM ACCOMPANYING PATIENT AT THIS TIME. CALL BUTTON ON BED IS ACCESSIBLE TO PATIENT AND NO FURTHER NEEDS AT THIS TIME.
--- NOTE | 2024-02-26 17:05 | NUR ---
VITALS OBTAINED. PATIENT PLESANT AND FRIENDLY WITH STAFF. MOOD APPEARS TO BE GOOD WITH NO NEGATIVE THOUGHTS AT THIS TIME. PATIENT DENIES ANY NEEDS AT THIS TIME. SECURITY STAFF IN ROOM WITH PATIENT. CALL LIGHT [facility]IN [facility].
--- NOTE | 2024-02-26 17:51 | NUR ---
DINNER BROUGHT IN FOR PATIENT. HOSPITAL SECURITY PERSONNEL IN ROOM WITH PATIENT. PATIENT RESTING IN BED AT THIS TIME. DENIES ANY FURTHER NEEDS. CALL LIGHT BUTTON ON BED ACCESSIBLE TO PATIENT.
--- NOTE | 2024-02-26 19:42 | NUR ---
REPORT RECEIVED FROM BRYSON RICHARD. PATIENT RESTING IN BED WITH EYES CLOSED, RESPIRATIONS EVEN AND UNLABORED. 1:1 SITTER IN ROOM FOR SAFETY.
--- NOTE | 2024-02-26 20:00 | NUR ---
PATIENT IS VERY TEARFUL AND ANXIOUS THIS EVENING. REPORTS SHE MET WITH [facility]CS TODAY AND IS UPSET THAT "THEY ARE GOING TO PUT ME IN A LOCKED UNIT." ALLOWED FOR PATIENT TO EXPRESS HERSELF AND SHE CALMED SOME AFTER TALKING. PATIENT DENIED THOUGHTS OF SELF HARM OR SUICIDE. DENIED HALLUCINATIONS FOR HEARING VOICES. CONVERSATION WAS CLEAR, LINEAR AND WITHOUT ANGER RATHER JUST TEARFUL AND ANXIOUS ABOUT HER UPCOMING ASSESSMENT TOMORROW AND OUTCOME/PLACEMENT. 1:1 SITTER REMAINS IN ROOM FOR SAFETY.
--- NOTE | 2024-02-26 20:35 | NUR ---
PATIENT HAD REMOVED LIDOCAINE PATCH EARLIER IN THE DAY. REQUESTED ANOTHER. REVIEWED WITH DR. TAYLOR. ONE TIME ORDER FOR LIDOCAINE PATCH RECEIVED. DAILY ORDER REMAINS IN PLACE.
[2024-02-26] MEDS ORDERED: LIDOCAINE PATCH REMOVAL 1 EA TD SCH (21:00)
[2024-02-26] MEDS ORDERED: LIDOCAINE HCL 4% 1 EACH PATCH TD ONE (21:07)
--- NOTE | 2024-02-26 21:16 | NUR ---
LIDOCAINE PATCH PLACED TO RIGHT MID LATERAL SIDE. PATIENT VERBALIZED UNDERSTANDING TO NOTIFY RN IF SHE PULLS IT OFF AND GIVE THE PATCH TO RN.
--- NOTE | 2024-02-26 22:01 | NUR ---
PATIENT RESTING WITH EYES CLOSED. RESPIRATIONS EVEN AND UNLABORED. 1:1 SITTER REMAINS IN ROOM FOR SAFETY.
--- NOTE | 2024-02-27 00:48 | NUR ---
PATIENT RESTING WITH EYES CLOSED. RESPIRATIONS EVEN AND UNLABORED, RR 16. SECURITY IN ROOM PROVIDING 1:1 OBSERVATION.
[2024-02-27 01:44] VITALS: BP 136/101
--- NOTE | 2024-02-27 01:45 | NUR ---
THIS RN IN ROOM 1:1. PT GIVEN TYLENOL PER EMAR FOR HEADACHE. DENIES THOUGHTS OF SI OR SELF HARM. APPEARS LESS ANXIOUS THAN BEGINNING OF SHIFT. FRESH WATER PROVIDED.
[2024-02-27] MEDS ORDERED: POLYETHYLENE GLYCOL 3350 1 PACKET PO SCH ×2 (06:00→09:00)
--- NOTE | 2024-02-27 06:04 | NUR ---
PATIENT RESTING IN BED. FRESH WATER PROVIDED. REQUESTS TO SHOWER AND GET OOB. PATIENT INFORMED SHE MAY GET OUT OF BED BUT SHOWER WILL BE DONE ON DAY SHIFT WITHIN AGREED UPON CAREPLAN ADL TIMELINES. SECURITY PROVIDING 1:1 OBSERVATION.
--- NOTE | 2024-02-27 07:10 | NUR ---
PATIENT UP TO BATHROOM TO VOID. ENGAGES IN CONVERSATION AND LAUGHING. APPEARS TO BE IN GOOD SPIRITS. SECURITY IN ROOM PROVIDING 1:1 OBSERVATION AT THIS TIME.
[2024-02-27 07:54] VITALS: BP 157/102
[2024-02-27 07:59] VITALS: BP 157/102
--- NOTE | 2024-02-27 08:44 | NUR ---
PATIENT AWAKE AND IN GOOD SPIRITS THIS AM. PT EATING BREAKFAST AND HER APPETITE SEEMS TO BE IMPROVING. DENIES ANY THOUGHTS OF SELF HARM TODAY. SITTER REMAINS IN ROOM 1:1 FOR SAFETY. CCS EVALUATION TO BE DONE TODAY.
[2024-02-27] MEDS ORDERED: LIDOCAINE PATCH REMOVAL 1 EA TD ONE (09:00)
--- NOTE | 2024-02-27 09:18 | NUR ---
CCS COUNSELOR IN ROOM AT THIS TIME TO EVALUATE PATIENT AND PERFORM SCREENING TOOL TO ASSESS FOR PLACEMENT INTO A DRUG/ALCOHOL FACILITY.
--- NOTE | 2024-02-27 10:09 | NUR ---
UR CONCURRENT REVIEW: [facility]-DOES NOT MEET GL DAY 2, VIARANCE COMPLETED BASIC DMAP INPT 02/23/24 @ 0830 ORDER MATCHES REG NO AUTH REQUIRED PER MEDICAID GUIDELINES CURRENT ON MENTAL HEALTH HOLD, AWAITING PLACEMENT TO IN PSYCH/ALCOHOL REHAB 02/29/24
--- NOTE | 2024-02-27 10:39 | NUR ---
PT NOT AVAILABLE FOR VISIT. PROVIDED PRAYER.
--- NOTE | 2024-02-27 10:42 | NUR ---
[facility]S IS HERE TO EVAL PATIENT AND SHE IS GOING TO BE CLEARED AND D/C WITH THEM TODAY. PATIENT GIVEN HER PERSONAL BELONGINGS BACK. MENTAL HEALTH HOLD IS BEING TAKEN OFF. CCS REMAINING IN ROOM WITH PATIENT.
[2024-02-27] MEDS ORDERED: AMLODIPINE BESYL5 MG PO (11:15)
--- NOTE | 2024-02-27 11:25 | NUR ---
PATIENT DC WITH [facility] TODAY. NO CM NEEDS
== END 2024-02-27 11:38 | disposition home or self-care (01) | DRG 918 ==
LOC: ED 12:34 → CCU 02-21 12:36
PROVIDERS: Emergency Medicine; Internal Medicine; ADMIT Student in an Organized Health Care Education/Training Program; ATTEND Student in an Organized Health Care Education/Training Program
DX: T51.2X2A Toxic effect of 2-Propanol, intentional self-harm, initial encounter (principal); N17.9 Acute kidney failure, unspecified; R45.851 Suicidal ideations; F10.239 Alcohol dependence with withdrawal, unspecified; F17.210 Nicotine dependence, cigarettes, uncomplicated; F15.10 Other stimulant abuse, uncomplicated; K59.00 Constipation, unspecified; R00.0 Tachycardia, unspecified; E87.6 Hypokalemia; R82.5 Elevated urine levels of drugs, medicaments and biological substances; I10 Essential (primary) hypertension; Y90.0 Blood alcohol level of less than 20 mg/100 ml; Z98.51 Tubal ligation status; Z79.2 Long term (current) use of antibiotics; Z79.899 Other long term (current) drug therapy; Z88.5 Allergy status to narcotic agent
CPT/HCPCS: 36415; 51701; 80048; 80053; 80307; 81001; 82010; 83036; 83735; 84100; 84443; 84703; 85025; 85060; 93005; 93010; 96365; 96366; 96367; 96372; 96376; 99285-25; A9270; G0378; G0480; J0780; J1644; J1650; J2060; J2405; J3411; J3475; J7030; J7040; J7121

== ENCOUNTER 2024-03-31 11:43 | Emergency (ER) | payer OTHER ==
[~2024-03-31] VITALS: Ht 162.6 cm; Wt 56.7 kg
[~2024-03-31 11:43] MED LIST changes: +AMLODIPINE BESYL5 MG PO; +HYDROXYZINE PAM25 MG PO
--- OUTSIDE RECORDS SUMMARY | 2024-03-31 11:50 | XMS ---
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 E.D. VISIT COUNT (12 MO.) 7 [facility]ARD[facility] Glass [address] [place], [place] [address] ([employer]) TOTAL 8 NOTE: Visits indicate total known visits. 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 - Other psychoactive substance abuse, uncomplicated - Unspecified abdominal pain 02/17/2024 08:52 [facility] [place] TYPE: Emergency COMPLAINT: - CHEST PAIN DIAGNOSES: - Allergy status to narcotic agent - Altered mental status, unspecified - Nicotine dependence, unspecified, uncomplicated - Other fdc (current) drug therapy - Transient alteration of awareness - Urinary tract infection, site not specified 02/09/2024 21:09 [facility] [place] TYPE: Emergency COMPLAINT: - ANXIETY DIAGNOSES: - Allergy status to narcotic agent - Anxiety disorder, unspecified - Nicotine dependence, unspecified, uncomplicated - 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 10/12/2023 14:16 [facility] [place] TYPE: Emergency COMPLAINT: - HEART RATE ISSUE DIAGNOSES: - Alcohol dependence with withdrawal, unspecified - Allergy status to narcotic agent - Coagulation defect, unspecified - Hypomagnesemia - Hypotension, unspecified - Nicotine dependence, unspecified, uncomplicated - Noninfective gastroenteritis and colitis, unspecified - Other fdc (current) drug therapy - Sepsis, unspecified organism - Thrombocytopenia, unspecified - Tubulo-interstitial nephritis, 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 acute or chronic - Unspecified cirrhosis of liver - Unspecified kidney failure 09/08/2023 13:45 [facility] [place] KRISHAN ([employer]) TYPE: Emergency DIAGNOSES: - Alcohol use, unspecified with intoxication, unspecified - Other fatigue - Tachycardia, unspecified - Chest Pain - cp - Fatigue 06/27/2023 03:45 [facility] TYPE: Emergency COMPLAINT: - CHEST PAIN INPATIENT VISIT TRACKING (12 MO.) 02/23/2024 08:30 [facility] [place] TYPE: Critical Care COMPLAINT: - ALCOHOL WITHDRAWAL DIAGNOSES: - Acute kidney failure, unspecified - Alcohol dependence with withdrawal, unspecified - Allergy status to narcotic agent - Blood alcohol level of less than 20 mg/100 ml - Constipation, unspecified - Elevated urine levels of drugs, medicaments and biological substances - Essential (primary) hypertension - Hypokalemia - [facility] (current) use of antibiotics - Nicotine dependence, cigarettes, uncomplicated - Other fdc (current) drug therapy - Other stimulant abuse, uncomplicated - Suicidal ideations - Tachycardia, unspecified - Toxic effect of 2-Propanol, intentional self-harm, initial encounter - Tubal ligation status 10/13/2023 02:23 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
[2024-03-31] MEDS ORDERED: ACETAMINOPHEN 500 MG TAB PO ONE (12:15)
[2024-03-31] MEDS ORDERED: cloNIDine HCL 0.1 MG TAB PO ONE (12:15)
[2024-03-31 12:21] LABS: BASOPHILS 0.5 % (0-2); EOSINOPHILS 0.4 % (0-6); HEMOGLOBIN 12.6 g/dL (12.0-18.0); LYMPHOCYTES 16.9 % (24-44); MCH 30.4 (27-36); MCHC 34.2 g/dl (30-36); NEUTROPHILS 75.2 % (39-80); PLATELET COUNT 342 K/uL (140-440); RBC 4.15 M/ul (4.3-5.7); RDW 17.3 (10.5-15.0)
[2024-03-31 12:37] LABS: ALBUMIN 4.1 g/dL (3.4-5.0); ALBUMIN/GLOBULIN RATIO 1.24 (1.1-2.4); ANION GAP 16.2 (7-21); BILIRUBIN, TOTAL 0.8 mg/dL (0.2-1.0); BUN/CREATININE RATIO 13.95 (6.0-28.6); CALCIUM 9.5 mg/dL (8.5-10.1); CREATININE, SERUM 0.86 mg/dL (0.55-1.02); POTASSIUM 4.2 mmol/L (3.5-5.1); PROTEIN, TOTAL 7.4 g/dL (6.4-8.2)
[2024-03-31] MEDS ORDERED: CLONIDINE HCL0.1 MG PO (13:14)
[2024-03-31 13:27] VITALS: BP 126/95
--- NOTE | 2024-04-01 18:50 | EKG ---
[facility] [address] [facility] [address] [facility] [place] [address] Signed Normal sinus rhythm Normal ECG When compared with ECG of 20-FEB-2024 13:33, Vent. rate has decreased BY 41 BPM T wave amplitude has increased in Anterolateral leads Confirmed by Latisha Suazo MD () on 04/01/2024 6:50:22 PM Electronically Signed By: LATISHA SUAZO MD 04/01/241849 PATIENT NAME: JOEL SANTACRUZ Electrocardiogram DATE OF : 81 PHYSICIAN: LATISHA SUAZO MD REPORT #: [id number] REPORT IS CONFIDENTIAL AND NOT TO BE RELEASED WITHOUT AUTHORIZATION
== END 2024-03-31 13:28 | disposition home or self-care (01) ==
LOC: ED 11:43
PROVIDERS: Emergency Medicine
DX: I10 Essential (primary) hypertension (principal); F17.200 Nicotine dependence, unspecified, uncomplicated; Z88.5 Allergy status to narcotic agent; Z79.899 Other long term (current) drug therapy
CPT/HCPCS: 36415; 80053; 84703; 85025; 93005; 93010; 99283; A9270; G0480

== ENCOUNTER 2024-04-26 04:13 | Emergency (ER) | payer OTHER ==
[~2024-04-26] VITALS: Ht 162.6 cm; Wt 54.6 kg
--- OUTSIDE RECORDS SUMMARY | 2024-04-26 04:20 | XMS ---
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 Renae VISIT COUNT (12 MO.) [address] [place], [place] [address]Brad ([employer]) TOTAL 9 NOTE: Visits indicate total known visits. ED/UCC VISIT TRACKING (12 MO.) 04/26/2024 04:13 [facility] [place] TYPE: Emergency COMPLAINT: - BLOOD PRESSURE ISSUES 03/31/2024 11:44 [facility] [place] TYPE: Emergency COMPLAINT: - BLOOD PRESSURE ISSUES DIAGNOSES: - Allergy status to narcotic agent - Essential (primary) hypertension - Nicotine dependence, unspecified, uncomplicated - Other intermission coordinator (current) drug therapy 02/20/2024 12:35 [facility] [place] TYPE: Emergency COMPLAINT: - SUBSTANCE ABUSE 02/18/2024 12:24 [facility] [place] TYPE: Emergency COMPLAINT: - ABDOMINAL PAIN DIAGNOSES: - Allergy status to narcotic agent - Nicotine dependence, unspecified, uncomplicated - Other intermission coordinator (current) drug therapy - Other psychoactive substance abuse, uncomplicated - Unspecified abdominal pain 02/17/2024 08:52 [facility] [place] TYPE: Emergency COMPLAINT: - CHEST PAIN DIAGNOSES: - Allergy status to narcotic agent - Altered mental status, unspecified - Nicotine dependence, unspecified, uncomplicated - Other intermission coordinator (current) drug therapy - Transient alteration of awareness - Urinary tract infection, site not specified 02/09/2024 21:09 [facility] [place] TYPE: Emergency COMPLAINT: - ANXIETY DIAGNOSES: - Allergy status to narcotic agent - Anxiety disorder, unspecified - Nicotine dependence, unspecified, uncomplicated - Other care home (current) drug therapy 10/12/2023 14:16 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 or chronic - Unspecified cirrhosis of liver - Unspecified kidney failure [facility]23 [facility] DIAGNOSES: - Alcohol use, unspecified with intoxication, unspecified - Other fatigue - Tachycardia, unspecified - Chest Pain - cp - Fatigue 06/27/2023 03:45 [facility] [place] TYPE: Emergency COMPLAINT: - CHEST PAIN INPATIENT [...] - Essential (primary) hypertension - Hypokalemia - ferry 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
[2024-04-26 04:41] LABS: BASOPHILS 0.5 % (0-2); EOSINOPHILS 0.3 % (0-6); HEMATOCRIT 43.8 % (35.0-50.0); HEMOGLOBIN 14.9 g/dL (12.0-18.0); LYMPHOCYTES 20.1 % (24-44); MCH 30.1 (27-36); MCHC 34.1 g/dl (30-36); MCV 88.2 fl (81-99); MONOCYTES 7.2 % (0-12); NEUTROPHILS 71.9 % (39-80); PLATELET COUNT 411 K/uL (140-440); RBC 4.97 M/ul (4.3-5.7); RDW 16.6 (10.5-15.0)
[2024-04-26] MEDS ORDERED: AMLODIPINE BESYLATE 10 MG TAB PO ONE (04:45)
[2024-04-26] MEDS ORDERED: AMLODIPINE BESYLATE 5 MG TAB PO ONE (04:45)
[2024-04-26] MEDS ORDERED: cloNIDine HCL 0.1 MG TAB PO ONE (04:45)
[2024-04-26] MEDS ORDERED: MULTIVITAMINS 10 ML,FOLIC ACID 1 MG,THIAMINE HCL 100 MG in SODIUM CHLORIDE 0.9% 1,000 ML IV ONE (04:45)
[2024-04-26] MEDS ORDERED: CHLORDIAZEPOXIDE 25 MG CAP PO ONE (04:45)
[2024-04-26] MEDS ORDERED: FOLIC ACID 1 MG/0.2 ML ML ONE (05:05)
[2024-04-26 05:43] LABS: ACETAMINOPHEN 0 ug/mL (10-30); ALBUMIN 4.3 g/dL (3.4-5.0); ALBUMIN/GLOBULIN RATIO 1.23 (1.1-2.4); ALCOHOL, MEDICAL <3 ng/dL (<3); ALKALINE PHOSPHATASE 215 U/L (46-116); ALT (SGPT) 38 U/L (14-59); ANION GAP 14.3 (7-21); AST (SGOT) 75 U/L (15-37); BILIRUBIN, TOTAL 0.5 mg/dL (0.2-1.0); BUN/CREATININE RATIO 3.77 (6.0-28.6); CALCIUM 9.2 mg/dL (8.5-10.1); CARBON DIOXIDE 29 mmol/L (21-32); CHLORIDE 100 mmol/L (98-107); CREATININE, SERUM 1.59 mg/dL (0.55-1.02); GLOMERULAR FILTRATION RATE,EST 42 mL/min (>60); POTASSIUM 3.3 mmol/L (3.5-5.1); PROTEIN, TOTAL 7.8 g/dL (6.4-8.2); SALICYLATE 1.9 mg/dL (2.8-20.0); TSH, 3RD GENERATION 1.425 uIU/mL (0.358-3.740); UREA NITROGEN 6 mg/dL (7-18)
[2024-04-26] MEDS ORDERED: CHLORDIAZEPOXID25 MG PO (06:25)
[2024-04-26] MEDS ORDERED: NORVASC5 MG PO (06:25)
[2024-04-26] MEDS ORDERED: CLONIDINE HCL0.2 MG PO (06:25)
[2024-04-26 06:26] LABS: BILIRUBIN, URINE NEGATIVE (negative); BLOOD/HGB, URINE TRACE-I (Negative); KETONE, URINE NEGATIVE (Negative); LEUK ESTERASE, URINE MODERATE (negative); NITRITE, URINE POSITIVE (negative); PH, URINE 6.5 (5-7)
[2024-04-26 06:29] LABS: BACTERIA, URINE 4+ /hpf (negative); CASTS, URINE NONE SEEN \\lpf; COLLECTION TYPE, URINE CLEAN CATCH; CRYSTALS, URINE NONE SEEN (0-1+); EPITHELIAL CELLS, URINE SQUAMOUS 2+ /lpf (0-1+); RED BLOOD CELLS, URINE 0-1 /hpf (0-5); WHITE BLOOD CELLS, URINE >50 /HPF (0-5)
[2024-04-26 06:30] LABS: REFLEX CULTURE, URINE No (No)
[2024-04-26] MEDS ORDERED: LACTATED RINGER'S 1,000 ML IV ONE (06:30)
[2024-04-26 06:47] LABS: AMPHETAMINES, URINE POSITIVE (NEGATIVE); BARBITURATES, URINE NEGATIVE (NEGATIVE); BENZODIAZEPINE, URINE NEGATIVE (NEGATIVE); BUPRENORPHINE, URINE NEGATIVE (NEGATIVE); CANNABINOID, URINE POSITIVE (NEGATIVE); COCAINE, URINE NEGATIVE (NEGATIVE); ECSTASY, URINE NEGATIVE (NEGATIVE); FENTANYL, URINE NEGATIVE (NEGATIVE); METHADONE, URINE NEGATIVE (NEGATIVE); OPIATES, URINE NEGATIVE (NEGATIVE); OXYCODONE, URINE NEGATIVE (NEGATIVE); PHENCYCLIDINE, URINE NEGATIVE (NEGATIVE)
[2024-04-26] MEDS ORDERED: MACROBID 100 M100 MG PO (06:48)
[2024-04-26] MEDS ORDERED: NITROFURANTOIN MONOHYD MACROCR 100 MG CAP PO ONE (07:00)
[2024-04-26 07:05] VITALS: BP 138/100
--- NOTE | 2024-04-27 11:08 | EKG ---
[facility] [address] [facility] [place] [address] Signed Sinus tachycardia Otherwise normal ECG When compared with ECG of 31-MAR-2024 12:55, Vent. rate has increased BY 54 BPM Confirmed by Jesse Graves MD ([id number]) on 04/27/2024 11:08:19 AM Electronically Signed By: JESSE GRAVES MD 04/27/24 1108 PATIENT NAME: JOEL SANTACRUZ Electrocardiogram DATE OF : 81 PHYSICIAN: JESSE GRAVES MD REPORT #: [id number] REPORT IS CONFIDENTIAL AND NOT TO BE RELEASED WITHOUT AUTHORIZATION
== END 2024-04-26 07:05 | disposition home or self-care (01) ==
LOC: ED 04:13
PROVIDERS: Internal Medicine
DX: I16.0 Hypertensive urgency (principal); I10 Essential (primary) hypertension; N39.0 Urinary tract infection, site not specified; F10.10 Alcohol abuse, uncomplicated; F17.200 Nicotine dependence, unspecified, uncomplicated; Z88.5 Allergy status to narcotic agent; Z79.899 Other long term (current) drug therapy
CPT/HCPCS: 36415; 80053; 80307; 81001; 84443; 84703; 85025; 87088; 93005; 93010; 96365; 99284-25; G0480; J3411; J7030; J7121